=== PATIENT | male | born 1930 | race Caucasian/White ===

== ENCOUNTER 2017-03-01 12:42 | Inpatient (IN) ==
--- NOTE | 2017-03-01 15:51 | Emergency Department Note ---
Disposition Clinical Impression: Pressure ulcer Qualifiers: Pressure ulcer location: buttock Pressure ulcer stage: unspecified pressure ulcer stage Laterality: right Qualified Code(s): L89.319 - Pressure ulcer of right buttock, unspecified stage Sacral decubitus ulcer Qualifiers: Pressure ulcer stage: unspecified pressure ulcer stage Qualified Code(s): L89.159 - Pressure ulcer of sacral region, unspecified stage Disposition: Admitted As Inpatient Condition: Fair Referrals: NONE,PCP [Primary Care Provider] - Forms: ED Satisfaction Letter Time of Disposition: 18:39 Wound/Laceration HPI - General Chief Complaint: ED Wound/Laceration Stated Complaint: Ulcer on buttocks Time Seen by Provider: 03/01/17 15:16 Source: patient, family Mode of arrival: ambulatory Limitations: no limitations Nursing Notes Reviewed: Yes Vital Signs Reviewed: Yes - History of Present Illness HPI Narrative: 86-year-old male with an ulceration on his left buttocks. Patient was being seen at the [facility] wound care clinic and had surgical debridement of the wound and 2 sutures placed with packing placed. Patient is not happy with the care has had some drainage. Patient has an appointment at our wound care center on . Denies shaking chills fever. Granddaughter who is caregiver states that the wound does not look as good as it had in the past. Onset (ago): week(s) Location: other (Buttocks) Mechanism: other (Patient has a history of MS and is bedridden and developed a pressure ulcer.) Associated symptoms: Reports: none - Related Data Allergies Allergy/AdvReac Type Severity Reaction Status Date / Time Penicillins Allergy Swelling Verified 03/01/17 13:51 of Lip/Tongue/Throat All systems ED: reviewed and negative except as stated. Constitutional: Denies: fever, chills, weakness, weight change Eyes: Denies: eye pain, eye discharge, vision change ENT ED: Denies: ear pain, throat pain, dental pain, hearing loss, epistaxis, congestion, dysphagia Cardiovascular: Denies: chest pain, palpitations, dyspnea on exertion, edema, syncope Respiratory: Denies: cough, dyspnea, wheezes, hemoptysis, stridor Gastrointestinal: Denies: abdominal pain, nausea, vomiting, diarrhea, constipation, hematemesis, melena, hematochezia Genitourinary: Denies: urgency, dysuria, frequency, hematuria Musculoskeletal: Denies: back pain, neck pain, arthralgia, myalgia Integumentary: Denies: rash, abrasion, lesions Neurological: Denies: headache, weakness, numbness, paresthesias, confusion, abnormal gait, vertigo Psychiatric: Denies: anxiety, depression, suicidal thoughts, homicidal thoughts , auditory hallucinations, visual hallucinations Endocrine: Denies: fatigue Hematological/Lymphatic: Denies: easy bleeding, easy bruising Allergic/Immunologic: Denies: facial swelling, urticaria Past Medical History - Past Medical History Medical history: Reports: dementia, hypertension, TIA Psychiatric history: Reports: no psych history - Social History Smoking Status: Former smoker Smokeless Tobacco Status: No Alcohol use: Reports: none Drug use: Reports: none Physical Exam - General General appearance: alert, in no apparent distress - Head Head exam: atraumatic, normocephalic, normal inspection - Eye Eye exam: Present: normal appearance, PERRL, EOMI - ENT ENT exam: normal exam, normal oropharynx, mucous membranes moist - Neck Neck exam: Present: normal inspection, full ROM, trachea midline - Chest Chest inspection: Present: normal inspection, symmetric chest wall rise - Respiratory Respiratory exam: Present: normal lung sounds bilaterally - Cardiovascular Cardiovascular exam: Present: regular rate, normal rhythm, normal heart sounds - Abdominal Exam Abdominal exam: Present: soft, Non-Tender. Absent: tenderness, distention, guarding, rebound, rigidity - Rectal Exam Rectal exam: Present: other (Serration with 2 sutures of with some drainage. The sutures are very loose and do not approximate the wound edges. There is packing in place. A culture was obtained. The sutures were removed. New packing was placed.) - Extremities Exam Extremities exam: Present: normal inspection, full ROM. Absent: tenderness, pedal edema - Expanded Lower Extremity Exam Neurovascular/Tendon exam: Absent: motor deficit, sensory deficit, tendon deficit Gait: not tested/not observed - Back Exam Back exam: Present: normal inspection, full ROM. Absent: tenderness - Neurological Exam Neurological exam: Present: alert, oriented X3 - Psychiatric Psychiatric exam: Present: normal affect, normal mood - Skin Skin exam: Present: warm, dry, intact, normal color Course - Reevaluation(s) Reevaluation #1: 86-year-old with an ulceration on his right buttocks review had debridement done an outside facility with 2 stitches placed. Caregiver states that the amount of drainage has markedly increased and it looks much worse with surrounding redness. The 2 sutures were removed and. Material was irrigated from the ulceration. CT scan does show a sacral decubitus with cellulitis extending down to the initial tuberosity but no osteomyelitis. In light of the worsening symptoms the patient will be admitted IV antibiotics and surgical evaluation. Time: 18:37 - Consultations Consultation #1: Discussed with Rehana Ren, admit. Time: 18:37 Vital Signs Temperature 97.7 F 03/01/17 13:46 Pulse Rate 81 03/01/17 13:46 Respiratory Rate 16 03/01/17 13:46 Blood Pressure 171/78 03/01/17 13:46 O2 Sat by Pulse Oximetry 96 03/01/17 13:46 Temperature 97.7 F 03/01/17 13:46 Pulse Rate 81 03/01/17 13:46 Respiratory Rate 16 03/01/17 13:46 Blood Pressure 171/78 03/01/17 13:46 O2 Sat by Pulse Oximetry 96 03/01/17 13:46 Oxygen Delivery Oxygen Delivery Room Air Wound/Laceration - Lab Data Result diagrams: 03/01/17 16:04 03/01/17 16:04 Lab Results 03/01/17 03/01/17 03/01/17 Range/Units 16:04 16:04 16:04 WBC 9.3 (4.3-11.1) K/mcL RBC 3.61 L (4.19-5.50) M/mcL Hgb 10.8 L (12.9-16.9) g/dL Hct 33.9 L (37.5-50.1) % MCV 93.9 (83.0-100.0) fL MCH 29.9 (28.0-33.3) pg MCHC 31.9 (31.6-35.5) g/dL RDW 13.6 (11.5-14.5) % Plt Count 283 (140-400) K/mcL MPV 9.3 L (9.4-12.4) fL Immature Gran % 0.3 (0-4) % Seg Neutrophils % 69.6 % Lymphocytes % 17.1 % Monocytes % 7.8 % Eosinophils % 5.1 % Basophils % 0.1 % Neutrophils # 6.4 (1.6-8.9) K/mcL Lymphocytes # 1.6 (0.6-4.6) K/mcL Monocytes # 0.7 (0.0-1.3) K/mcL Eosinophils # 0.5 (0.0-0.6) K/mcL Basophils # 0.0 (0.0-0.2) K/mcL ESR 78 H (0-10) mm/hr Sodium 146 H (136-145) mEq/L Potassium 4.1 (3.5-4.5) mEq/L Chloride 110 H (98-109) mEq/L Carbon Dioxide 29 (19-29) mEq/L BUN 26 (8-26) mg/dL Creatinine 1.11 (0.72-1.25) mg/dL Est GFR ( Amer) > 60 (> 60) Est GFR (Non-Af Amer) > 60 (> 60) BUN/Creatinine Ratio 23 (6-26) Glucose 120 H (70-99) mg/dL Calculated Osmolality 308 H (280-300) Calcium 9.1 (8.6-10.8) mg/dL - Radiology Data Radiology results reviewed: Yes I reviewed the patient's radiology results. Pelvis CT 03/01/17 16:50 IMPRESSION: 1. Sacral decubitus ulcer extending to the right ischial tuberosity. 2. No erosion change to indicate osteomyelitis. MRI may be considered for more sensitive evaluation if necessary. 3. Trabecular pattern of bladder mucosa suggests bladder outlet obstruction that is chronic. There is also slight proximal dilation of the distal ureters. D/ / Juan Daniel Melton MD / Juan Daniel Melton MD Interpreting Provider: Juan Daniel Melton MD
[2017-03-01 16:11] LABS: Basophils % 0.1 %; Eosinophils # 0.5 K/mcL (0.0-0.6); Eosinophils % 5.1 %; Hematocrit 33.9 % (37.5-50.1); Hemoglobin 10.8 g/dL (12.9-16.9); Immature Granulocytes % 0.3 % (0-4); Lymphocytes # 1.6 K/mcL (0.6-4.6); Lymphocytes % 17.1 %; Mean Corpuscular HGB Conc 31.9 g/dL (31.6-35.5); Mean Corpuscular Hemoglobin 29.9 pg (28.0-33.3); Mean Corpuscular Volume 93.9 fL (83.0-100.0); Mean Platelet Volume 9.3 fL (9.4-12.4); Monocytes # 0.7 K/mcL (0.0-1.3); Monocytes % 7.8 %; Neutrophils # 6.4 K/mcL (1.6-8.9); Platelet Count 283 K/mcL (140-400); Red Blood Count 3.61 M/mcL (4.19-5.50); Red Cell Distribution Width 13.6 % (11.5-14.5); Segmented Neutrophils % 69.6 %
[2017-03-01 16:23] LABS: BUN/Creatinine Ratio 23 (6-26); Blood Urea Nitrogen 26 mg/dL (8-26); Calcium 9.1 mg/dL (8.6-10.8); Carbon Dioxide 29 mEq/L (19-29); Chloride 110 mEq/L (98-109); Glucose 120 mg/dL (70-99); Osmolality,Calculated 308 (280-300); Potassium 4.1 mEq/L (3.5-4.5); Sodium 146 mEq/L (136-145); eGFR For African Americans > 60 (> 60); eGFR For Non-African Americans > 60 (> 60)
[2017-03-01] MEDS ORDERED: Vancomycin 1,000 MG in D5% in Water 250 ML IVPB ONE (18:36)
[2017-03-01] MEDS ORDERED: Ibuprofen 400 MG TABLET PO PRN (20:28)
[2017-03-01] MEDS ORDERED: *HR* Morphine 2 MG/ML SYRINGE IVP PRN (20:28)
[2017-03-01] MEDS ORDERED: Naloxone 0.4 MG/ML INJ IVP PRN (20:28)
[2017-03-01] MEDS ORDERED: Baclofen 10 MG TABLET PO PRN (20:28)
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
[2017-03-01] MEDS: Gabapentin 100 MG CAPSULE PO SCH (21:53)
[2017-03-01] MEDS: Ringers Solution, Lactated 1,000 ML IVC SCH (21:53)
[2017-03-02 04:41] LABS: Eosinophils # 0.6 K/mcL (0.0-0.6); Eosinophils % 7.1 %; Hematocrit 29.1 % (37.5-50.1); Hemoglobin 9.6 g/dL (12.9-16.9); Immature Granulocytes % 0.2 % (0-4); Lymphocytes # 1.3 K/mcL (0.6-4.6); Lymphocytes % 14.9 %; Mean Corpuscular Hemoglobin 30.7 pg (28.0-33.3); Mean Platelet Volume 9.9 fL (9.4-12.4); Monocytes # 0.9 K/mcL (0.0-1.3); Monocytes % 10.2 %; Neutrophils # 5.8 K/mcL (1.6-8.9); Platelet Count 229 K/mcL (140-400); Red Blood Count 3.13 M/mcL (4.19-5.50); Red Cell Distribution Width 13.8 % (11.5-14.5); Segmented Neutrophils % 67.6 %
[2017-03-02 04:50] LABS: BUN/Creatinine Ratio 25 (6-26); Blood Urea Nitrogen 28 mg/dL (8-26); Calcium 8.4 mg/dL (8.6-10.8); Carbon Dioxide 27 mEq/L (19-29); Chloride 111 mEq/L (98-109); Glucose 86 mg/dL (70-99); Osmolality,Calculated 303 (280-300); Potassium 4.1 mEq/L (3.5-4.5); Sodium 144 mEq/L (136-145); eGFR For African Americans > 60 (> 60); eGFR For Non-African Americans > 60 (> 60)
[2017-03-02] MEDS: *HR* Heparin 5,000 UNIT/ML VIAL SQ SCH ×2 (06:38→17:03)
[2017-03-02] MEDS: Ringers Solution, Lactated 1,000 ML IVC SCH (09:21)
[2017-03-02] MEDS: Gabapentin 100 MG CAPSULE PO SCH ×3 (09:21→20:46)
[2017-03-02] MEDS: Cholecalciferol (D-3) 1,000 UNIT TABLET PO SCH (09:21)
--- NOTE | 2017-03-02 11:20 | General Surgery Consult Note ---
<Cate Khoury - Last Filed: 03/02/17 11:36> Date of Encounter: 03/02/17 Time of Encounter: 10:30 Assessment and Plan (1) Pressure ulcer Current Visit: Yes Status: Acute Daily wound care: wash daily with soap and water. Apply sample and gentamicin ( 50/50) nickel thick to the wound bed. Cover with a moistened KerLix calls. Cover with ABD and tape to secure daily and PRN when soiled and after bowel movements. Q2 turns. Granddaughter is unable to provide 24-hour care including Q2 turns and with like referral for rehab versus ECF placement. PT OT eval and treat for limited ADLs and pressure ulcer Prevention as well as rehab placement. FLORENTINO Gu aware. If he is discharged prior to Wednesday, he will need a follow-up in the wound clinic and will need a Roho at d/c. Qualifiers: Pressure ulcer location: buttock Pressure ulcer stage: stage 4 Laterality : right Qualified Code(s): L89.314 - Pressure ulcer of right buttock, stage 4 (2) Paraplegia Current Visit: Yes Status: Chronic See plan above History of Present Illness Consult date: 03/02/17 (Jermain Fontaine) Reason for consult: wound care Requesting physician: Aj Fuller History of present illness: Deniz is an 86 year old male with a past medical history of paraplegia (wheelchair-bound), multiple sclerosis, and pressure ulcers. He presented for complaints of a perianal nonhealing pressure ulcer. He lives at home with his granddaughter who provides the majority of his care. He denies fever or chills. He denies headaches, dizziness, chest pain, shortness of breath, nausea , vomiting, diarrhea, constipation, or changes in bowel habits. Surgery was consultative for evaluation and management of perianal decubitus ulcer. Past Med Surg Social Fam HX - Past Medical History Medical history: dementia, hypertension, TIA Psychiatric history: depression - Past Surgical History Surgical History: cancer surgery - Social History Smoking Status: Former smoker Smokeless Tobacco Status: No Alcohol use: none Drug use: none Occupational status: disabled Current living situation: With Family Activity Level: Wheelchair bound Recent Out of Country Travel Within the Last 8 Weeks: No Exposure or Possible Exposure to Illness During Travel: No Medications and Allergies Atorvastatin [Lipitor] 10 mg PO HS 03/01/17 [History] Baclofen [Lioresal] 10 mg PO BID PRN 03/01/17 [History] Cholecalciferol (Vitamin D3) [Vitamin D] 2,000 unit PO DAILY 03/01/17 [History] Clopidogrel [Plavix] 75 mg PO DAILY 03/01/17 [History] Cyanocobalamin (Vitamin B-12) [Vitamin B-12] 500 mcg PO DAILY 03/01/17 [History] Gabapentin [Neurontin] 200 mg PO TID 03/01/17 [History] Ibuprofen [Motrin] 400 mg PO Q6H PRN 03/01/17 [History] 3 Allergy/AdvReac Type Severity Reaction Status Date / Time Penicillins Allergy Swelling Verified 03/01/17 13:51 of Lip/Tongue/Throat Review of Systems All systems PM: A 10-system review of systems was performed and is negative for pertinent findings except as documented above in the HPI. General Surgery Exam Initial Vital Signs Temp Pulse Resp BP Pulse Ox 97.7 F 81 16 171/78 96 03/01/17 13:46 03/01/17 13:46 03/01/17 13:46 03/01/17 13:46 03/01/17 13:46 - General physical appearance no distress, chronically ill - Eyes PERRL, normal ocular movement - ENT normal pinna, normal nares, normal mucosa, no hearing loss, no congestion - Neck no masses, no bruits, trachea midline, no lymphadectomy, no venous distension - Respiratory normal expansion, normal respiratory effort, clear to percussion, clear to auscultation - Cardiovascular Cardiovascular exam: Present: RRR, 15, 16 - Abdomen Abdomen general surgery: Present: bowel sounds present, soft, non tender - Rectum Rectum: Present: no bleeding - Integumentary Integumentary general surgery: Present: warm and dry, other (Perianal decub on the right. No drainage or signs of infection noted.) - Neurologic Present: normal sensation - Musculoskeletal Present: other (Multiple contractures noted) - Psychiatric Psychiatric general surgery: Present: appropriate, oriented to person, oriented to place, oriented to time, speech is normal, memory intact Exam Initial Vital Signs Temp Pulse Resp BP Pulse Ox 97.7 F 81 16 171/78 96 03/01/17 13:46 03/01/17 13:46 03/01/17 13:46 03/01/17 13:46 03/01/17 13:46 Results - Labs 03/02/17 04:28 03/02/17 04:28 Abnormal lab results RBC 3.13 M/mcL (4.19-5.50) L 03/02/17 04:28 Hgb 9.6 g/dL (12.9-16.9) L 03/02/17 04:28 Hct 29.1 % (37.5-50.1) L 03/02/17 04:28 ESR 78 mm/hr (0-10) H 03/01/17 16:04 Chloride 111 mEq/L (98-109) H 03/02/17 04:28 BUN 28 mg/dL (8-26) H 03/02/17 04:28 Calculated Osmolality 303 (280-300) H 03/02/17 04:28 Calcium 8.4 mg/dL (8.6-10.8) L 03/02/17 04:28 Diabetes panel 03/02/17 Range/Units 04:28 Sodium 144 (136-145) mEq/L Potassium 4.1 (3.5-4.5) mEq/L Chloride 111 H (98-109) mEq/L Carbon Dioxide 27 (19-29) mEq/L BUN 28 H (8-26) mg/dL Creatinine 1.13 (0.72-1.25) mg/dL Glucose 86 (70-99) mg/dL Calcium 8.4 L (8.6-10.8) mg/dL Calcium panel 03/02/17 Range/Units 04:28 Calcium 8.4 L (8.6-10.8) mg/dL Pituitary panel 03/02/17 Range/Units 04:28 Sodium 144 (136-145) mEq/L Potassium 4.1 (3.5-4.5) mEq/L Chloride 111 H (98-109) mEq/L Carbon Dioxide 27 (19-29) mEq/L BUN 28 H (8-26) mg/dL Creatinine 1.13 (0.72-1.25) mg/dL Glucose 86 (70-99) mg/dL Calcium 8.4 L (8.6-10.8) mg/dL Adrenal panel 03/02/17 Range/Units 04:28 Sodium 144 (136-145) mEq/L Potassium 4.1 (3.5-4.5) mEq/L Chloride 111 H (98-109) mEq/L Carbon Dioxide 27 (19-29) mEq/L BUN 28 H (8-26) mg/dL Creatinine 1.13 (0.72-1.25) mg/dL Glucose 86 (70-99) mg/dL Calcium 8.4 L (8.6-10.8) mg/dL All other labs normal. - Imaging Additional studies: Pelvis CT 03/01/17 16:50 IMPRESSION: 1. Sacral decubitus ulcer extending to the right ischial tuberosity. 2. No erosion change to indicate osteomyelitis. MRI may be considered for more sensitive evaluation if necessary. 3. Trabecular pattern of bladder mucosa suggests bladder outlet obstruction that is chronic. There is also slight proximal dilation of the distal ureters. D/ / Juan Daniel Melton MD / Juan Daniel Melton MD Interpreting Provider: Juan Daniel Melton MD Consult Discharge Plan - Plan Additional Instructions: wash buttock wound with soap and water daily and prn soilage, get 1 4x4 gauze moist with saline (not sloppy wet) and apply santyl and gentamicin ointment to gauze and mix/rub into gauze, pack into wound, cover with dry 4x4 gauze and secure with medipore tape, change daily and prn soilage Referrals: NONE,PCP [Primary Care Provider] - Lynne Fontaine MD [Partnered Physician] - (follow up with me in wound care this wednesday) <Lynne Fontaine - Last Filed: 03/02/17 12:18> Date of Encounter: 03/02/17 Assessment and Plan (1) Pressure ulcer of ischium, stage 3 Current Visit: Yes Status: Acute are does not appear infected wash buttock wound with soap and water daily and prn soilage, get 1 4x4 gauze moist with saline (not sloppy wet) and apply santyl and gentamicin ointment to gauze and mix/rub into gauze, pack into wound, cover with dry 4x4 gauze and secure with medipore tape, change daily and prn soilage patient does not need to be kept in hospital due to this wound, ok to dc from wound care standpoint once his grandaughter is taught how to dress wound follow up with me in wound care this wednesday turn and reposition every 2 hours while in bed Low air loss mattress at all times while in bed Qualifiers: Laterality: right Qualified Code(s): L89.313 - Pressure ulcer of right buttock, stage 3 History of Present Illness History of present illness: Patient and his daughter state he has had a pressure ulcer for the last three weeks. He was seeing a surgeon at [facility] who recently took him to the OR and surgically closed the wound. The wound opened after a few days. He is unsure what dressings are currently being done to it, he is unsure about drainage. He lives with his granddaughter who takes care of him Past Med Surg Social Fam HX - Past Medical History Source: patient Medical history: other (MS, contractures RUE) Review of Systems All systems PM: reviewed and no additional remarkable complaints except as stated All systems PM: A 10-system review of systems was performed and is negative for pertinent findings except as documented above in the HPI. General Surgery Exam Initial Vital Signs Temp Pulse Resp BP Pulse Ox 97.7 F 81 16 171/78 96 03/01/17 13:46 03/01/17 13:46 03/01/17 13:46 03/01/17 13:46 03/01/17 13:46 - General physical appearance no distress, chronically ill - Eyes PERRL, normal ocular movement - ENT normal mucosa - Neck no masses - Respiratory normal expansion - Integumentary Integumentary general surgery: Present: other (right ischium pressure ulcer stage 3, 80% granulation, 20% slough, periwound warm and no erythema, moderate serous drainge) - Neurologic Present: CN 2-12 grossly intact - Musculoskeletal Present: other (Multiple contractures noted, wheelchair bound) - Psychiatric Psychiatric general surgery: Present: A&Ox3, memory intact Exam Initial Vital Signs Temp Pulse Resp BP Pulse Ox 97.7 F 81 16 171/78 96 03/01/17 13:46 03/01/17 13:46 03/01/17 13:46 03/01/17 13:46 03/01/17 13:46 Results - Labs 03/02/17 04:28 03/02/17 04:28 Abnormal lab results RBC 3.13 M/mcL (4.19-5.50) L 03/02/17 04:28 Hgb 9.6 g/dL (12.9-16.9) L 03/02/17 04:28 Hct 29.1 % (37.5-50.1) L 03/02/17 04:28 ESR 78 mm/hr (0-10) H 03/01/17 16:04 Chloride 111 mEq/L (98-109) H 03/02/17 04:28 BUN 28 mg/dL (8-26) H 03/02/17 04:28 Calculated Osmolality 303 (280-300) H 03/02/17 04:28 Calcium 8.4 mg/dL (8.6-10.8) L 03/02/17 04:28 Diabetes panel 03/02/17 Range/Units 04:28 Sodium 144 (136-145) mEq/L Potassium 4.1 (3.5-4.5) mEq/L Chloride 111 H (98-109) mEq/L Carbon Dioxide 27 (19-29) mEq/L BUN 28 H (8-26) mg/dL Creatinine 1.13 (0.72-1.25) mg/dL Glucose 86 (70-99) mg/dL Calcium 8.4 L (8.6-10.8) mg/dL Calcium panel 03/02/17 Range/Units 04:28 Calcium 8.4 L (8.6-10.8) mg/dL Pituitary panel 03/02/17 Range/Units 04:28 Sodium 144 (136-145) mEq/L Potassium 4.1 (3.5-4.5) mEq/L Chloride 111 H (98-109) mEq/L Carbon Dioxide 27 (19-29) mEq/L BUN 28 H (8-26) mg/dL Creatinine 1.13 (0.72-1.25) mg/dL Glucose 86 (70-99) mg/dL Calcium 8.4 L (8.6-10.8) mg/dL Adrenal panel 03/02/17 Range/Units 04:28 Sodium 144 (136-145) mEq/L Potassium 4.1 (3.5-4.5) mEq/L Chloride 111 H (98-109) mEq/L Carbon Dioxide 27 (19-29) mEq/L BUN 28 H (8-26) mg/dL Creatinine 1.13 (0.72-1.25) mg/dL Glucose 86 (70-99) mg/dL Calcium 8.4 L (8.6-10.8) mg/dL All other labs normal. - Imaging CT scan - pelvis: report reviewed - Attending Attestation I have personally performed a face to face evaluation on this patient. I have reviewed and agree with the care plan. History and Exam by me shows:
[2017-03-02] MEDS: Gentamicin Oint 15 GM TUBE TP SCH (11:31)
--- NOTE | 2017-03-02 12:25 | Internal Med Progress Note ---
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 Resting in bed and denies any discomfort at this time. He is bed and wheelchair bound at baseline and only oriented to self at baseline. - Constitutional Vitals: Temp Pulse Resp BP Pulse Ox 97.9 F 96 15 118/56 95 03/02/17 10:42 03/02/17 10:42 03/02/17 10:42 03/02/17 10:42 03/02/17 10:42 General appearance: Present: A&O X 1, no acute distress, underweight - Head Head exam: Present: atraumatic, normocephalic - Eye Eye exam: Present: conjuntiva pink, sclera anicteric - Respiratory Respiratory exam: Present: CTAB. Absent: accessory muscle use, rales, rhonchi, wheezes - Cardiovascular Cardiovascular exam: Present: RRR, +S1, +S2. Absent: diastolic murmur, gallop, rubs, systolic murmur - GI/Abdominal GI/Abdominal exam: Present: normal bowel sounds, soft, no peritoneal signs. Absent: distended, tenderness - Extremities Exam Extremities exam: Present: warm, radial pulses palpable and symmetrical. Absent : calf tenderness (onychomycosis of bilateral toe nails) - Neurological Exam Neurological exam: Present: alert - Psychiatric Psychiatric exam: Present: normal affect, normal mood Internal Medicine: Result - Labs CBC & Chem 7: 03/02/17 04:28 03/02/17 04:28 Labs: Short CBC 03/02/17 Range/Units 04:28 WBC 8.5 (4.3-11.1) K/mcL Hgb 9.6 L (12.9-16.9) g/dL Hct 29.1 L (37.5-50.1) % Plt Count 229 (140-400) K/mcL Neutrophils # 5.8 (1.6-8.9) K/mcL BMP 03/02/17 04:28 Sodium 144 Potassium 4.1 Chloride 111 H Carbon Dioxide 27 BUN 28 H Creatinine 1.13 Glucose 86 Calcium 8.4 L Consult Discharge Plan - Plan Additional Instructions: wash buttock wound with soap and water daily and prn soilage, get 1 4x4 gauze moist with saline (not sloppy wet) and apply santyl and gentamicin ointment to gauze and mix/rub into gauze, pack into wound, cover with dry 4x4 gauze and secure with medipore tape, change daily and prn soilage Referrals: Lynne Fontaine MD [Partnered Physician] - (follow up with me in wound care this wednesday) NONE,PCP [Primary Care Provider] -
[2017-03-02] MEDS: Multivit/Ca/Min/Fe/FA 1 TAB TABLET PO SCH (17:03)
[2017-03-02] MEDS: Vancomycin 1,000 MG in D5% in Water 250 ML IVPB SCH (18:25)
[2017-03-02] MEDS ORDERED: Vancomycin 1,000 MG in D5% in Water 250 ML IVPB SCH (20:00)
[2017-03-02] MEDS: Ibuprofen 400 MG TABLET PO PRN (20:46)
[2017-03-02] MEDS: Ascorbic Acid 500 MG TABLET PO SCH (20:46)
[2017-03-03] MEDS: Ringers Solution, Lactated 1,000 ML IVC SCH ×2 (01:40→13:19)
[2017-03-03] MEDS: Ibuprofen 400 MG TABLET PO PRN (03:34)
[2017-03-03 03:50] LABS: Eosinophils # 0.5 K/mcL (0.0-0.6); Eosinophils % 6.5 %; Hematocrit 24.9 % (37.5-50.1); Hemoglobin 8.1 g/dL (12.9-16.9); Immature Granulocytes % 0.2 % (0-4); Lymphocytes # 1.4 K/mcL (0.6-4.6); Mean Corpuscular HGB Conc 32.5 g/dL (31.6-35.5); Mean Corpuscular Hemoglobin 30.3 pg (28.0-33.3); Mean Corpuscular Volume 93.3 fL (83.0-100.0); Mean Platelet Volume 9.5 fL (9.4-12.4); Monocytes # 0.9 K/mcL (0.0-1.3); Monocytes % 11.4 %; Neutrophils # 5.2 K/mcL (1.6-8.9); Platelet Count 209 K/mcL (140-400); Red Blood Count 2.67 M/mcL (4.19-5.50); Red Cell Distribution Width 13.7 % (11.5-14.5); Segmented Neutrophils % 64.9 %
[2017-03-03 04:03] LABS: Magnesium 1.4 mg/dL (1.6-2.6); Phosphorous 3.1 mg/dL (2.3-4.7)
[2017-03-03 04:04] LABS: BUN/Creatinine Ratio 32 (6-26); Blood Urea Nitrogen 36 mg/dL (8-26); Carbon Dioxide 28 mEq/L (19-29); Chloride 112 mEq/L (98-109); Glucose 89 mg/dL (70-99); Osmolality,Calculated 302 (280-300); Potassium 4.2 mEq/L (3.5-4.5); Sodium 142 mEq/L (136-145); eGFR For African Americans > 60 (> 60); eGFR For Non-African Americans > 60 (> 60)
[2017-03-03] MEDS: *HR* Heparin 5,000 UNIT/ML VIAL SQ SCH ×2 (06:27→17:38)
[2017-03-03] MEDS ORDERED: Magnesium Sulfate 2 GM in D5% in Water 100 ML IVPB ONE (07:31)
[2017-03-03] MEDS: Cholecalciferol (D-3) 1,000 UNIT TABLET PO SCH (07:59)
[2017-03-03] MEDS: Ascorbic Acid 500 MG TABLET PO SCH ×2 (07:59→20:27)
[2017-03-03] MEDS: Multivit/Ca/Min/Fe/FA 1 TAB TABLET PO SCH (07:59)
[2017-03-03] MEDS: Gabapentin 100 MG CAPSULE PO SCH ×3 (07:59→20:27)
[2017-03-03] MEDS: Gentamicin Oint 15 GM TUBE TP SCH (08:01)
[2017-03-03] MEDS ORDERED: Levofloxacin 750 MG/150 ML 750 MG/150 ML BAG IVPB SCH (09:00)
--- NOTE | 2017-03-03 13:08 | Internal Med Progress Note ---
Date of Encounter: 03/03/17 Time of Encounter: 13:04 - Assessment and plan (1) Sacral decubitus ulcer Current Visit: Yes Status: Acute Assessment and plan: Wound cultures positive for E.coli ESBL, proteus mirabilis, and enteroccocus species, only sensitive to Carbapenems. Will start Meropenem and continue Vancomycin monitor vanco trough will follow up official wound culture results daily wound care as per surgery Family states they would like to take the patient when ready after discharge however if he needs IV abx, then they would prefer if he went to an ECF. 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, stage 4 (2) Paraplegia Current Visit: Yes Status: Chronic (3) CVA (cerebral vascular accident) Current Visit: Yes Status: Chronic Assessment and plan: history of CVA with right sided residual deficit continue lipitor and plavix Qualifiers: CVA mechanism: unspecified Qualified Code(s): I63.9 - Cerebral infarction, unspecified (4) DVT prophylaxis Current Visit: Yes Status: Acute Assessment and plan: heparin SQ (5) Electrolyte abnormality Current Visit: Yes Status: Acute Assessment and plan: Hypomagnesemia Mg supplemented continue to monitor electrolytes and replace as needed - Subjective Interval history: Patient seen and examined with daughter present at bedside. Pt eating lunch and reports of feeling better compared to previous day. he is noted to have a preliminary positive wound culture for E.coli ESBL, Enterococcus, Proteus mirabilis which is resistant to majority of the drugs and sensitive to carbapenems. The pharmacist discussed patient's penicillin in detail with patient's POA/clinical care coordinator (grand daughter), who stated that he had a reaction with swollen lips to penicillin 60 years ago and no such recurrency have been reported. Pt will be started on Meropenem with close monitoring. - Constitutional Vitals: Temp Pulse Resp BP Pulse Ox 97.5 F L 90 16 111/63 94 03/03/17 10:47 03/03/17 10:47 03/03/17 10:47 03/03/17 10:47 03/03/17 10:47 General appearance: Present: A&O X 1, no acute distress, underweight - Head Head exam: Present: atraumatic, normocephalic - Eye Eye exam: Present: conjuntiva pink, sclera anicteric - Respiratory Respiratory exam: Absent: respiratory distress, wheezes - Cardiovascular Cardiovascular exam: Present: RRR, +S1, +S2. Absent: diastolic murmur, gallop, rubs, systolic murmur - GI/Abdominal GI/Abdominal exam: Present: normal bowel sounds, soft, no peritoneal signs. Absent: distended, tenderness - Extremities Exam Extremities exam: Present: warm, radial pulses palpable and symmetrical. Absent : calf tenderness - Neurological Exam Neurological exam: Present: alert Internal Medicine: Result - Labs CBC & Chem 7: 03/03/17 03:42 03/03/17 03:42 Labs: Short CBC 03/03/17 Range/Units 03:42 WBC 8.1 (4.3-11.1) K/mcL Hgb 8.1 L D (12.9-16.9) g/dL Hct 24.9 L (37.5-50.1) % Plt Count 209 (140-400) K/mcL Neutrophils # 5.2 (1.6-8.9) K/mcL BMP 03/03/17 03:42 Sodium 142 Potassium 4.2 Chloride 112 H Carbon Dioxide 28 BUN 36 H Creatinine 1.11 Glucose 89 Calcium 8.0 L Consult Discharge Plan - Plan Additional Instructions: wash buttock wound with soap and water daily and prn soilage, get 1 4x4 gauze moist with saline (not sloppy wet) and apply santyl and gentamicin ointment to gauze and mix/rub into gauze, pack into wound, cover with dry 4x4 gauze and secure with medipore tape, change daily and prn soilage Referrals: Lynne Fontaine MD [Partnered Physician] - (follow up with me in wound care this wednesday) NONE,PCP [Primary Care Provider] -
[2017-03-03] MEDS: Meropenem 1,000 MG in 0.9 % Sodium Chloride Mini Bag 100 ML IVPB SCH ×2 (14:06→23:39)
[2017-03-03] MEDS: Vancomycin 1,000 MG in D5% in Water 250 ML IVPB SCH ×2 (17:38→20:27)
[2017-03-03 18:49] LABS: Bilirubin,Urine Negative (Negative); Blood,Urine Moderate (Negative); Clarity,Urine Cloudy (Clear); Color,Urine Yellow (Yellow); Glucose,Urine (UA) Normal (Normal); Ketones,Urine Negative (Negative); Leukocyte Esterase,Urine Large (Negative); Nitrite,Urine Negative (Negative); PH,Urine 6.5 pH Units (5.0-8.0); Protein,Urine Negative (Neg-Trace); Specific Gravity,Urine 1.021 (1.010-1.025); Urobilinogen,Urine Normal (Normal)
[2017-03-03 18:51] LABS: Bacteria,Urine None Seen per hpf (None-Few); Hyaline Casts,Urine None Seen per lpf (None-Few); RBC,Urine 15-30 per hpf (0-3); Squamous Epithelial Cell,Urine Many per lpf (None-Few); WBC,Urine 50-100 per hpf (0-3)
[2017-03-03] MEDS: Acetaminophen 325 MG TABLET PO PRN (20:26)
[2017-03-03 20:34] LABS: Basophils % 0.1 %; Eosinophils # 0.1 K/mcL (0.0-0.6); Eosinophils % 0.6 %; Hematocrit 30.1 % (37.5-50.1); Hemoglobin 9.6 g/dL (12.9-16.9); Immature Granulocytes % 0.7 % (0-4); Lymphocytes # 0.3 K/mcL (0.6-4.6); Lymphocytes % 2.3 %; Mean Corpuscular HGB Conc 31.9 g/dL (31.6-35.5); Mean Corpuscular Hemoglobin 29.5 pg (28.0-33.3); Mean Corpuscular Volume 92.6 fL (83.0-100.0); Monocytes # 0.9 K/mcL (0.0-1.3); Monocytes % 6.1 %; Neutrophils # 12.7 K/mcL (1.6-8.9); Platelet Count 225 K/mcL (140-400); Red Blood Count 3.25 M/mcL (4.19-5.50); Red Cell Distribution Width 13.7 % (11.5-14.5); Segmented Neutrophils % 90.2 %
[2017-03-03 20:52] LABS: Platelet Estimate Normal (Normal)
[2017-03-03] MEDS ORDERED: 0.9 % Sodium Chloride 500 ML ONE (21:35)
[2017-03-03] MEDS ORDERED: 0.9 % Sodium Chloride 1,000 ML IVC SCH (23:45)
[2017-03-04] MEDS: Ipratropium/Albuterol Neb 3 ML IH SCH ×7 (00:51→23:44)
[2017-03-04] MEDS ORDERED: Furosemide 20 MG/2 ML VIAL IVP ONE (03:40)
[2017-03-04] MEDS: *HR* Heparin 5,000 UNIT/ML VIAL SQ SCH ×2 (05:59→18:13)
[2017-03-04 06:07] LABS: Basophils % 0.1 %; Eosinophils # 0.1 K/mcL (0.0-0.6); Eosinophils % 1.2 %; Hematocrit 29.5 % (37.5-50.1); Hemoglobin 9.4 g/dL (12.9-16.9); Immature Granulocytes % 0.5 % (0-4); Lymphocytes # 0.9 K/mcL (0.6-4.6); Mean Corpuscular HGB Conc 31.9 g/dL (31.6-35.5); Mean Corpuscular Hemoglobin 29.9 pg (28.0-33.3); Mean Corpuscular Volume 93.9 fL (83.0-100.0); Mean Platelet Volume 9.9 fL (9.4-12.4); Monocytes # 0.9 K/mcL (0.0-1.3); Monocytes % 8.3 %; Neutrophils # 9.1 K/mcL (1.6-8.9); Platelet Count 220 K/mcL (140-400); Red Blood Count 3.14 M/mcL (4.19-5.50); Red Cell Distribution Width 14.2 % (11.5-14.5); Segmented Neutrophils % 81.9 %
[2017-03-04 06:47] LABS: Platelet Estimate Normal (Normal)
[2017-03-04 07:15] LABS: BUN/Creatinine Ratio 23 (6-26); Blood Urea Nitrogen 29 mg/dL (8-26); Calcium 8.4 mg/dL (8.6-10.8); Carbon Dioxide 23 mEq/L (19-29); Chloride 107 mEq/L (98-109); Glucose 109 mg/dL (70-99); Osmolality,Calculated 294 (280-300); Potassium 3.9 mEq/L (3.5-4.5); Sodium 139 mEq/L (136-145); eGFR For African Americans > 60 (> 60); eGFR For Non-African Americans 55 (> 60)
[2017-03-04 07:18] LABS: Magnesium 1.7 mg/dL (1.6-2.6)
[2017-03-04] MEDS: Cholecalciferol (D-3) 1,000 UNIT TABLET PO SCH (09:55)
[2017-03-04] MEDS: Gabapentin 100 MG CAPSULE PO SCH ×3 (09:55→20:02)
[2017-03-04] MEDS: Ascorbic Acid 500 MG TABLET PO SCH ×2 (09:55→20:02)
[2017-03-04] MEDS: Multivit/Ca/Min/Fe/FA 1 TAB TABLET PO SCH (09:55)
[2017-03-04] MEDS: Gentamicin Oint 15 GM TUBE TP SCH (09:56)
[2017-03-04] MEDS: Meropenem 1,000 MG in 0.9 % Sodium Chloride Mini Bag 100 ML IVPB SCH (12:20)
--- NOTE | 2017-03-04 12:29 | Internal Med Progress Note ---
Date of Encounter: 03/04/17 Time of Encounter: 12:15 - Assessment and plan (1) Aspiration pneumonia Current Visit: Yes Status: Acute Assessment and plan: CXR findings consistent with Aspiration PNA will continue IV abx (Vanco and Merrem) f/u blood cultures will maintain aspiration precautions patient to sit up right in chair for meals O2 supplementation as needed will closely monitor respiratory status Will do mechanically altered diet Qualifiers: Aspiration pneumonia type: unspecified Laterality: bilateral Lung location: lower lobe of lung Qualified Code(s): J69.0 - Pneumonitis due to inhalation of food and vomit (2) Sacral decubitus ulcer Current Visit: Yes Status: Acute Assessment and plan: Wound cultures positive for E.coli ESBL, proteus mirabilis, and enteroccocus species, only sensitive to Carbapenems. Continue Meropenem and Vancomycin monitor vanco trough daily wound care Family states they would like to take the patient when ready after discharge however if he needs IV abx, then they would prefer if he went to an ECF. 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 Patient was noted to be hypotensive overnight and febrile. He was transferred to for concern for respiratory distress and hypotension. STAT lab work and imaging were concerning for Aspiration pneumonia. At this time, patient is resting in bed and reports of feeling better compared to previous day. He is saturating well on nasal cannula. He was evaluated by speech therapy and regular diet was recommended. Given patient's frail state, will start mechanically altered diet. He is at his baseline mental status. I had a detailed discussion with the POA in regards to patient's advance directives. She states that patient does not want to be on life support nursing home however does initially want all the interventions necessary if he were to go into acute respiratory failure or cardiac arrest. He is to remain full code at this time. Patient was started on Meropenem yesterday and he is tolerating therapy well, no adverse reactions reported given penicillin allergy. - Constitutional Vitals: Temp Pulse Resp BP Pulse Ox 99.3 F 105 20 110/50 96 03/04/17 11:45 03/04/17 11:45 03/04/17 11:54 03/04/17 11:45 03/04/17 11:54 General appearance: Present: A&O X 1, no acute distress, underweight - Head Head exam: Present: atraumatic, normocephalic - Eye Eye exam: Present: conjuntiva pink, sclera anicteric - Respiratory Respiratory exam: Absent: respiratory distress, wheezes (coarse breath sounds bilaterally) - Cardiovascular Cardiovascular exam: Present: +S1, +S2, tachycardia - GI/Abdominal GI/Abdominal exam: Present: normal bowel sounds, soft, no peritoneal signs. Absent: distended, tenderness - Extremities Exam Extremities exam: Present: pedal edema, warm, radial pulses palpable and symmetrical. Absent: calf tenderness - Back Exam Additional comments: stage III sacral decubitus - Neurological Exam Neurological exam: Present: alert - Psychiatric Psychiatric exam: Present: normal affect, normal mood Internal Medicine: Result - Labs CBC & Chem 7: 03/04/17 05:41 03/04/17 05:41 Labs: Short CBC 03/03/17 03/04/17 Range/Units 20:21 05:41 WBC 14.1 H D 11.1 (4.3-11.1) K/mcL Hgb 9.6 L D 9.4 L (12.9-16.9) g/dL Hct 30.1 L 29.5 L (37.5-50.1) % Plt Count 225 220 (140-400) K/mcL Neutrophils # 12.7 H 9.1 H (1.6-8.9) K/mcL BMP 03/04/17 05:41 Sodium 139 Potassium 3.9 Chloride 107 Carbon Dioxide 23 BUN 29 H Creatinine 1.24 Glucose 109 H Calcium 8.4 L Urine 03/03/17 Range/Units 18:19 Urine Color Yellow (Yellow) Urine Clarity Cloudy A (Clear) Urine pH 6.5 (5.0-8.0) pH Units Ur Specific Debary 1.021 (1.010-1.025) Urine Protein Negative (Neg-Trace) mg/dL Urine Glucose (UA) Normal (Normal) mg/dL - Impressions Impressions Chest X-Ray 03/03/17 20:36 IMPRESSION: Bibasilar lung opacities which could represent atelectasis or aspiration. D/ / Abiel Perez MD / Abiel Perez MD Interpreting Provider: Abiel Perez MD Consult Discharge Plan - Plan Additional Instructions: wash buttock wound with soap and water daily and prn soilage, get 1 4x4 gauze moist with saline (not sloppy wet) and apply santyl and gentamicin ointment to gauze and mix/rub into gauze, pack into wound, cover with dry 4x4 gauze and secure with medipore tape, change daily and prn soilage Referrals: Lynne Fontaine MD [Partnered Physician] - (follow up with me in wound care this wednesday) Deniz Ramos MD [Non-Partnered Physician] -
[2017-03-04] MEDS: Vancomycin 1,000 MG in D5% in Water 250 ML IVPB SCH (18:12)
[2017-03-05] MEDS: Acetaminophen 325 MG TABLET PO PRN (00:23)
[2017-03-05] MEDS: Meropenem 1,000 MG in 0.9 % Sodium Chloride Mini Bag 100 ML IVPB SCH ×2 (00:23→12:39)
[2017-03-05] MEDS: *HR* Heparin 5,000 UNIT/ML VIAL SQ SCH ×2 (06:22→16:48)
[2017-03-05] MEDS: Ipratropium/Albuterol Neb 3 ML IH SCH ×6 (06:25→23:13)
[2017-03-05 07:06] LABS: BUN/Creatinine Ratio 23 (6-26); Blood Urea Nitrogen 23 mg/dL (8-26); Calcium 8.2 mg/dL (8.6-10.8); Carbon Dioxide 23 mEq/L (19-29); Chloride 108 mEq/L (98-109); Glucose 122 mg/dL (70-99); Magnesium 1.5 mg/dL (1.6-2.6); Osmolality,Calculated 291 (280-300); Potassium 3.9 mEq/L (3.5-4.5); Sodium 138 mEq/L (136-145); eGFR For African Americans > 60 (> 60); eGFR For Non-African Americans > 60 (> 60)
[2017-03-05] MEDS ORDERED: Magnesium Sulfate 2 GM in D5% in Water 100 ML IVPB ONE (07:34)
[2017-03-05 07:55] LABS: Platelet Estimate Normal (Normal)
[2017-03-05 08:13] LABS: Eosinophils # 0.3 K/mcL (0.0-0.6); Hematocrit 23.6 % (37.5-50.1); Hemoglobin 7.6 g/dL (12.9-16.9); Lymphocytes # 2.3 K/mcL (0.6-4.6); Mean Corpuscular HGB Conc 32.2 g/dL (31.6-35.5); Mean Corpuscular Hemoglobin 30.2 pg (28.0-33.3); Mean Corpuscular Volume 93.7 fL (83.0-100.0); Mean Platelet Volume 10.1 fL (9.4-12.4); Monocytes # 0.1 K/mcL (0.0-1.3); Neutrophils # 4.5 K/mcL (1.6-8.9); Platelet Count 155 K/mcL (140-400); Red Blood Count 2.52 M/mcL (4.19-5.50); Red Cell Distribution Width 14.4 % (11.5-14.5)
[2017-03-05] MEDS: Gabapentin 100 MG CAPSULE PO SCH ×3 (08:52→22:13)
[2017-03-05] MEDS: Ascorbic Acid 500 MG TABLET PO SCH ×2 (08:52→22:13)
[2017-03-05] MEDS: Multivit/Ca/Min/Fe/FA 1 TAB TABLET PO SCH (08:53)
[2017-03-05] MEDS: Cholecalciferol (D-3) 1,000 UNIT TABLET PO SCH (08:53)
[2017-03-05] MEDS: Gentamicin Oint 15 GM TUBE TP SCH (09:32)
--- NOTE | 2017-03-05 09:44 | Internal Med Progress Note ---
Date of Encounter: 03/05/17 Time of Encounter: 09:44 - Assessment and plan (1) Aspiration pneumonia Current Visit: Yes Status: Acute Assessment and plan: CXR findings consistent with Aspiration PNA will continue IV abx (Vanco and Merrem) f/u blood cultures will maintain aspiration precautions patient to sit up right in chair for meals O2 supplementation as needed will closely monitor respiratory status Will do mechanically altered diet Qualifiers: Aspiration pneumonia type: unspecified Laterality: bilateral Lung location: lower lobe of lung Qualified Code(s): J69.0 - Pneumonitis due to inhalation of food and vomit (2) Sacral decubitus ulcer Current Visit: Yes Status: Acute Assessment and plan: Wound cultures positive for E.coli ESBL, proteus mirabilis, and enteroccocus species, only sensitive to Carbapenems. Continue Meropenem and Vancomycin monitor vanco trough daily wound care Family states they would like to take the patient when ready after discharge however if he needs IV abx, then they would prefer if he went to an ECF. 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, stage 4 (3) Paraplegia Current Visit: Yes Status: Chronic (4) CVA (cerebral vascular accident) Current Visit: Yes Status: Chronic Assessment and plan: history of CVA with right sided residual deficit continue lipitor and plavix Qualifiers: CVA mechanism: unspecified Qualified Code(s): I63.9 - Cerebral infarction, unspecified (5) DVT prophylaxis Current Visit: Yes Status: Acute Assessment and plan: heparin SQ (6) Electrolyte abnormality Current Visit: Yes Status: Resolved Assessment and plan: Hypomagnesemia, Hypophosphatemia Mg and Phos supplemented continue to monitor electrolytes and replace as needed - Subjective Interval history: Patient seen and examined with daughter at bedside. Patient eating breakfast and reports of feeling better compared to previous day. He remains O2 dependent. No overnight issues reported. - Constitutional Vitals: Temp Pulse Resp BP Pulse Ox 99.0 F 100 16 91/45 95 03/05/17 07:11 03/05/17 07:11 03/05/17 07:54 03/05/17 07:11 03/05/17 07:54 General appearance: Present: A&O X 1, no acute distress, underweight - Head Head exam: Present: atraumatic, normocephalic - Respiratory Respiratory exam: Absent: respiratory distress, wheezes - Cardiovascular Cardiovascular exam: Present: RRR, +S1, +S2. Absent: diastolic murmur, gallop, rubs, systolic murmur - GI/Abdominal GI/Abdominal exam: Present: normal bowel sounds, soft, no peritoneal signs. Absent: distended, tenderness - Extremities Exam Extremities exam: Present: warm, radial pulses palpable and symmetrical. Absent : calf tenderness - Back Exam Additional comments: stage 3 sacral decubitus - Neurological Exam Neurological exam: Present: alert - Psychiatric Psychiatric exam: Present: normal affect, normal mood Internal Medicine: Result - Labs CBC & Chem 7: 03/05/17 06:42 03/05/17 06:42 Labs: Short CBC 03/05/17 Range/Units 06:42 WBC 7.2 (4.3-11.1) K/mcL Hgb 7.6 L D (12.9-16.9) g/dL Hct 23.6 L (37.5-50.1) % Plt Count 155 (140-400) K/mcL Neutrophils # 4.5 (1.6-8.9) K/mcL BMP 03/05/17 06:42 Sodium 138 Potassium 3.9 Chloride 108 Carbon Dioxide 23 BUN 23 Creatinine 1.01 Glucose 122 H Calcium 8.2 L Consult Discharge Plan - Plan Additional Instructions: wash buttock wound with soap and water daily and prn soilage, get 1 4x4 gauze moist with saline (not sloppy wet) and apply santyl and gentamicin ointment to gauze and mix/rub into gauze, pack into wound, cover with dry 4x4 gauze and secure with medipore tape, change daily and prn soilage Referrals: Lynne Fontaine MD [Partnered Physician] - (follow up with me in wound care this wednesday) Deniz Ramos MD [Non-Partnered Physician] -
[2017-03-05 10:58] LABS: Hematocrit 22.6 % (37.5-50.1); Hemoglobin 7.2 g/dL (12.9-16.9)
--- NOTE | 2017-03-05 13:45 | Infectious Disease Consult ---
Date of Encounter: 03/05/17 Time of Encounter: 13:38 Assessment and Plan (1) Sepsis Status: Acute Assessment and plan: The patient developed sepsis-like picture after admission with fever, tachycardia, and leukocytosis. Likely secondary to aspiration PNA. Improved. WBC and tachycardia have improved. The patient continues to have intermittent fevers. Blood cultures drawn 03/03/17 are NGTD x 2 sets. Qualifiers: Qualified Code(s): A41.9 - Sepsis, unspecified organism (2) Aspiration pneumonia Status: Acute Assessment and plan: Patient was noted to have an aspiration event a couple of days ago. He has continues to have intermittent fevers since then. Speech therapy consulted and recommendations noted. Patient currently on mechanically altered diet and aspiration precautions. Recommend aggressive pulmonary toileting. Continue antibiotics as above. Qualifiers: Qualified Code(s): J69.0 - Pneumonitis due to inhalation of food and vomit (3) Infected wound Status: Acute Assessment and plan: Location: Left buttock. Causative organism: E. coli ESBL, Proteus mirabilis, Enterococcus species. Secondary to decubitus ulcer. CT of the abdomen and pelvis showed a soft tissue defect without OM or abscess. Clinically, the wound looks okay. No foul odor, purulent drainage, or necrosis. Does not appear to probe to the bone. ESR elevated at 78. Given elevated ESR, consider MRI to rule out OM as CT scan is not very sensitive. General surgery team consulted and following. Recommend aggressive wound care and frequent turning. Continue Meropenem 1 gram IV Q12H (dose for CrCl ~47). Continue Vancomycin IV. Pharmacy to dose. Duration of treatment depends on the clinical picture. Monitor renal function and for drug toxicity and dose-adjust antibiotics (4) Sacral decubitus ulcer Status: Acute Qualifiers: Qualified Code(s): L89.153 - Pressure ulcer of sacral region, stage 3 (5) Paraplegia Status: Chronic Infectious Disease HPI - Data of Consult Patient: new to practice Consult date: 03/05/17 Requesting Physician: Deya Blankenship MD Primary Care Provider: PCP NONE - Consult Narrative Reason for consult: Decubitus ulcer infection History of present illness: Mr. Ac is a 86 year old male 's medical history of dementia, hypertension, TIA, and functional paraplegia. The patient was admitted to the hospital March 01 for an infected decubitus ulcer. We are consulted March 05 for antibiotic recommendations regarding decubitus ulcer infection. The patient is an 86-year-old male with past medical history as stated above. The patient's dementia is somewhat precludes his ability to provide me with any history relating to the admission, therefore, most of the information is obtained from the medical record. Rarely, the patient has had a sacral decubitus ulcer for an unknown amount of time and was seeing a wound care doctor up at [facility]. He apparently had a couple of stitches placed last week to attempt to close the wound and his granddaughter who cares for him noted that the wound had more drainage and was more red and looked very good. She presented to the emergency department with him on the day of admission. Upon arrival, the patient was afebrile and hemodynamically stable. His white blood cell count was normal. ESR was elevated at 78. CT of the abdomen and pelvis was completed that was negative for ostomy myelitis or abscess. A wound culture was obtained that has come back positive for Escherichia coli ESBL, enterococcus species, and Proteus mirabilis. The patient was started empirically on IV antibiotics and admitted to the hospital for further evaluation and treatment. Since admission, the patient's white blood cell count did go up after an episode of aspiration, but has again normalize. He does continue to have some intermittent fevers. Blood cultures obtained on March 03 are no growth to date 2 sets. Chest x-ray completed at the same time revealed bibasilar opacities concerning for atelectasis versus aspiration early, the patient is on IV vancomycin and IV meropenem. We've been asked to evaluate and make further recommendations. During my exam today, there is no family at the bedside and the patient appears somewhat confused. He cannot tell me about anything prior to his hospitalization. Currently, the patient denies any complaints. He denies any fevers or chills or rigors. He denies any headache or neck pain. He denies any congestion, earache, or sore throat. He denies any chest pain, shortness of breath, or cough. He denies any nausea, vomiting, diarrhea, or constipation. The patient has a Xie catheter in his bladder and cannot tell me if this is something that he has all the time or just since being in the hospital. He denies any pain in his back, extremities, or neck. He states his appetite is been good. He is able to tell me that he lives with his granddaughter. He is unsure how long ulcer is been there or what caused it. He cannot relate any information regarding to his visit with the wound care doctor last week. CC: Deya Blankenship MD Past Med Surg Social Fam HX - Past Medical History Attestation: Yes The following information was validated with the patient. Source: old records reviewed, nursing notes reviewed Medical history: other (Dementia, paraplegia, TIA) Psychiatric history: depression - Past Surgical History Surgical History: cancer surgery - Social History Smoking Status: Former smoker Smokeless Tobacco Status: No Alcohol use: none Drug use: none Current living situation: With Family Activity Level: Wheelchair bound Recent Out of Country Travel Within the Last 8 Weeks: No Exposure or Possible Exposure to Illness During Travel: No Infectious Disease-CN:Meds Atorvastatin [Lipitor] 10 mg PO HS 03/01/17 [History] Baclofen [Lioresal] 10 mg PO BID PRN 03/01/17 [History] Cholecalciferol (Vitamin D3) [Vitamin D3] 2,000 unit PO DAILY 03/01/17 [History] Clopidogrel [Plavix] 75 mg PO DAILY 03/01/17 [History] Cyanocobalamin (Vitamin B-12) [Vitamin B-12] 500 mcg PO DAILY 03/01/17 [History] Gabapentin [Neurontin] 200 mg PO TID 03/01/17 [History] Ibuprofen [Motrin] 400 mg PO Q6H PRN 03/01/17 [History] Ertapenem [INVanz] 1,000 mg IVPB DAILY #7 vial 03/09/17 [Rx] Vancomycin [Vancocin (wt based)] 1,000 mg IV DAILY #5 vial 03/09/17 [Rx] Ascorbic Acid [Vitamin C] 500 mg PO BID #20 tablet 03/10/17 [Rx] Collagenase Oint [Santyl] 1 appl TP DAILY #1 tube 03/10/17 [Rx] Gentamicin Oint [Garamycin] 1 appl TP DAILY #1 tube 03/10/17 [Rx] Multivit/Ca/Min/Fe/FA [Thera M Plus] 1 tab PO DAILY #10 tablet 03/10/17 [Rx] 3 Allergy/AdvReac Type Severity Reaction Status Date / Time Penicillins Allergy Swelling Verified 03/01/17 13:51 of Lip/Tongue/Throat ROS unobtainable: due to mental status All systems: reviewed and no additional remarkable complaints except as stated Exam - Constitutional Vitals: Temp Pulse Resp BP Pulse Ox 98.9 F 108 18 119/58 96 03/05/17 11:16 03/05/17 12:41 03/05/17 11:20 03/05/17 11:16 03/05/17 11:20 General appearance: cooperative, no acute distress, thin - Head Head exam: Present: atraumatic, normal inspection, normocephalic - Eye Eye exam: Present: EOMI, normal appearance, PERRL Pupils: Present: normal accommodation - ENT ENT exam: Present: mucous membranes moist - Neck Neck exam: Present: normal inspection - Respiratory Respiratory exam: Present: CTAB. Absent: rales, respiratory distress, rhonchi, wheezes - Cardiovascular Cardiovascular exam: Present: RRR, +S1, +S2 - GI/Abdominal GI/Abdominal exam: Present: normal bowel sounds, soft. Absent: distended, tenderness Additional comments: Xie catheter noted to be draining clear yellow urine. - Extremities Exam Extremities exam: Absent: joint swelling, pedal edema, tenderness Additional comments: Muscle wasting and atrophy noted to the BLE and BUE. - Expanded Back Exam 1 - Stage III decubitus ulcer noted to the left buttock with 50% slough and 50 % granulation tissue noted in the wound bed. No purulent drainage, foul odor, or erythema noted. Wound measures approx 3cm x 2cm x 0.5cm deep. - Neurological Exam Neurological exam: Present: alert, oriented X3. Absent: facial droop, speech deficit - Psychiatric Psychiatric exam: Present: normal affect, normal mood - Skin Skin exam: Present: dry, intact, normal color, warm Infectious Disease CN: Results - Labs CBC & Chem 7: 03/10/17 03:30 03/10/17 03:35 Cultures: Cultures 03/03/17 20:21 Blood Culture - Preliminary Peripheral Venipuncture No growth. 03/03/17 20:21 Blood Culture - Preliminary Peripheral Venipuncture No growth. 03/03/17 18:19 Urine Culture - Final Urine,Clean Catch No growth. Cultures 03/03/17 20:21 Blood Culture - Preliminary Peripheral Venipuncture No growth. 03/03/17 20:21 Blood Culture - Preliminary Peripheral Venipuncture No growth. 03/03/17 18:19 Urine Culture - Final Urine,Clean Catch No growth. 03/01/17 15:44 Wound Culture - Final Buttock Escherichia coli ESBL Enterococcus species Proteus mirabilis Serology: Serology 03/03/17 Range/Units 18:19 Urine Color Yellow (Yellow) Urine Clarity Cloudy A (Clear) Urine pH 6.5 (5.0-8.0) pH Units Ur Specific [place] 1.021 (1.010-1.025) Urine Protein Negative (Neg-Trace) mg/dL Urine Glucose (UA) Normal (Normal) mg/dL Urine Ketones Negative (Negative) mg/dL Urine Blood Moderate H (Negative) Urine Nitrite Negative (Negative) Urine Bilirubin Negative (Negative) Urine Urobilinogen Normal (Normal) mg/dL Ur Leukocyte Esterase Large H (Negative) Urine Microscopic RBC 15-30 H (0-3) per hpf Urine Microscopic WBC 50-100 H (0-3) per hpf Ur Squamous Epith Cells Many H (None-Few) per lpf Urine Bacteria None Seen (None-Few) per hpf Hyaline Casts None Seen (None-Few) per lpf Consult Discharge Plan - Plan Instructions: Chronic Wound Care (DC), Pneumonia (DC) Additional Instructions: wash buttock wound with soap and water daily and prn soilage, get 1 4x4 gauze moist with saline (not sloppy wet) and apply santyl and gentamicin ointment to gauze and mix/rub into gauze, pack into wound, cover with dry 4x4 gauze and secure with medipore tape, change daily and prn soilage Follow-up with your primary care physician in 1-2 weeks. Follow-up with wound clinic as instructed by the wound nurse. Return to the ED of symptoms worsen or new symptoms arise. Referrals: WOUND, CLINIC [Other] - 03/12/17 10:45 am (THIS APPOINTMENT IS WITH DR. DENISE IN WOUND CARE) Deniz Ramos MD [Non-Partnered Physician] - 03/18/17 2:30 pm Prescriptions: Ascorbic Acid [Vitamin C] 500 mg PO BID #20 tablet Collagenase Oint [Santyl] 1 appl TP DAILY #1 tube Ertapenem [INVanz] 1,000 mg IVPB DAILY #7 vial Gentamicin Oint [Garamycin] 1 appl TP DAILY #1 tube Multivit/Ca/Min/Fe/FA [Thera M Plus] 1 tab PO DAILY #10 tablet Vancomycin [Vancocin (wt based)] 1,000 mg IV DAILY #5 vial
[2017-03-05] MEDS: Vancomycin 1,000 MG in D5% in Water 250 ML IVPB SCH (16:49)
[2017-03-06] MEDS: Meropenem 1,000 MG in 0.9 % Sodium Chloride Mini Bag 100 ML IVPB SCH ×3 (00:35→23:28)
[2017-03-06] MEDS: Ipratropium/Albuterol Neb 3 ML IH SCH ×6 (04:30→23:03)
[2017-03-06 04:32] LABS: Eosinophils # 0.5 K/mcL (0.0-0.6); Eosinophils % 7.9 %; Hematocrit 22.6 % (37.5-50.1); Hemoglobin 7.3 g/dL (12.9-16.9); Immature Granulocytes % 0.3 % (0-4); Lymphocytes # 1.1 K/mcL (0.6-4.6); Lymphocytes % 18.9 %; Mean Corpuscular HGB Conc 32.3 g/dL (31.6-35.5); Mean Corpuscular Hemoglobin 30.3 pg (28.0-33.3); Mean Corpuscular Volume 93.8 fL (83.0-100.0); Mean Platelet Volume 10.2 fL (9.4-12.4); Monocytes # 0.7 K/mcL (0.0-1.3); Monocytes % 11.8 %; Neutrophils # 3.6 K/mcL (1.6-8.9); Platelet Count 157 K/mcL (140-400); Red Blood Count 2.41 M/mcL (4.19-5.50); Red Cell Distribution Width 14.3 % (11.5-14.5); Segmented Neutrophils % 61.1 %
[2017-03-06 04:50] LABS: BUN/Creatinine Ratio 22 (6-26); Blood Urea Nitrogen 25 mg/dL (8-26); Carbon Dioxide 25 mEq/L (19-29); Chloride 108 mEq/L (98-109); Glucose 87 mg/dL (70-99); Magnesium 1.8 mg/dL (1.6-2.6); Osmolality,Calculated 290 (280-300); Phosphorous 2.7 mg/dL (2.3-4.7); Potassium 4.3 mEq/L (3.5-4.5); Sodium 138 mEq/L (136-145); eGFR For African Americans > 60 (> 60); eGFR For Non-African Americans > 60 (> 60)
[2017-03-06] MEDS: *HR* Heparin 5,000 UNIT/ML VIAL SQ SCH ×2 (05:38→18:07)
[2017-03-06] MEDS: Ascorbic Acid 500 MG TABLET PO SCH ×2 (08:30→20:22)
[2017-03-06] MEDS: Cholecalciferol (D-3) 1,000 UNIT TABLET PO SCH (08:30)
[2017-03-06] MEDS: Gentamicin Oint 15 GM TUBE TP SCH (08:32)
[2017-03-06] MEDS: Multivit/Ca/Min/Fe/FA 1 TAB TABLET PO SCH (08:44)
--- NOTE | 2017-03-06 08:58 | Internal Med Progress Note ---
Date of Encounter: 03/06/17 Time of Encounter: 08:57 - Assessment and plan (1) Aspiration pneumonia Current Visit: Yes Status: Acute Assessment and plan: CXR findings consistent with Aspiration PNA will continue IV abx (Vanco and Merrem) f/u blood cultures will maintain aspiration precautions patient to sit up right in chair for meals O2 supplementation as needed will closely monitor respiratory status Will do mechanically altered diet Qualifiers: Aspiration pneumonia type: unspecified Laterality: bilateral Lung location: lower lobe of lung Qualified Code(s): J69.0 - Pneumonitis due to inhalation of food and vomit (2) Sacral decubitus ulcer Current Visit: Yes Status: Acute Assessment and plan: Wound cultures positive for E.coli ESBL, proteus mirabilis, and enteroccocus species, only sensitive to Carbapenems. Continue Meropenem and Vancomycin monitor vanco trough daily wound care Family states they would like to take the patient when ready after discharge however if he needs IV abx, then they would prefer if he went to an ECF. ID consultation appreciated will obtain MR pelvis to rule out OM given the current stage of the sacral decubitus Qualifiers: Pressure ulcer stage: stage 3 Qualified Code(s): L89.153 - Pressure ulcer of sacral region, stage 3 (3) Paraplegia Current Visit: Yes Status: Chronic (4) CVA (cerebral vascular accident) Current Visit: Yes Status: Chronic Assessment and plan: history of CVA with right sided residual deficit continue lipitor and plavix Qualifiers: CVA mechanism: unspecified Qualified Code(s): I63.9 - Cerebral infarction, unspecified (5) DVT prophylaxis Current Visit: Yes Status: Acute Assessment and plan: heparin SQ (6) Electrolyte abnormality Current Visit: Yes Status: Resolved (7) Anemia Current Visit: Yes Status: Acute Assessment and plan: H&H low but acceptable will closely monitor will f/u iron studies, ferritin, Vit B12, folate will obtain stool occult transfuse if Hgb<7 Qualifiers: Anemia type: unspecified type Qualified Code(s): D64.9 - Anemia, unspecified - Subjective Interval history: Patient seen and examined at bedside. Patient sitting in chair and eating breakfast. Reports of feeling well at this time. Denies any discomfort. No overnight events reported. - Constitutional Vitals: Temp Pulse Resp BP Pulse Ox 97.1 F L 83 16 102/50 98 03/06/17 08:07 03/06/17 08:07 03/06/17 08:07 03/06/17 08:07 03/06/17 08:07 General appearance: Present: cooperative, A&O X 1, pleasant, no acute distress, underweight - Head Head exam: Present: atraumatic, normocephalic - Eye Eye exam: Present: conjuntiva pink, sclera anicteric - Respiratory Respiratory exam: Present: CTAB. Absent: accessory muscle use, rales, rhonchi, wheezes - Cardiovascular Cardiovascular exam: Present: RRR, +S1, +S2. Absent: diastolic murmur, gallop, rubs, systolic murmur - GI/Abdominal GI/Abdominal exam: Present: normal bowel sounds, soft, no peritoneal signs. Absent: distended, tenderness - Extremities Exam Extremities exam: Present: pedal edema, warm, radial pulses palpable and symmetrical. Absent: calf tenderness - Neurological Exam Neurological exam: Present: alert - Psychiatric Psychiatric exam: Present: normal affect, normal mood Internal Medicine: Result - Labs CBC & Chem 7: 03/06/17 04:21 03/06/17 04:21 Labs: Short CBC 03/05/17 03/06/17 Range/Units 10:51 04:21 WBC 5.9 (4.3-11.1) K/mcL Hgb 7.2 L 7.3 L (12.9-16.9) g/dL Hct 22.6 L 22.6 L (37.5-50.1) % Plt Count 157 (140-400) K/mcL Neutrophils # 3.6 (1.6-8.9) K/mcL BMP 03/06/17 04:21 Sodium 138 Potassium 4.3 Chloride 108 Carbon Dioxide 25 BUN 25 Creatinine 1.14 Glucose 87 Calcium 8.0 L Consult Discharge Plan - Plan Additional Instructions: wash buttock wound with soap and water daily and prn soilage, get 1 4x4 gauze moist with saline (not sloppy wet) and apply santyl and gentamicin ointment to gauze and mix/rub into gauze, pack into wound, cover with dry 4x4 gauze and secure with medipore tape, change daily and prn soilage Referrals: Lynne Fontaine MD [Partnered Physician] - (follow up with me in wound care this wednesday) Deniz Ramos MD [Non-Partnered Physician] -
[2017-03-06 08:59] LABS: % Iron Saturation 14 % (20-55); Iron 21 mcg/dL (65-175); Transferrin 107 mg/dL (174-364)
[2017-03-06 09:11] LABS: Ferritin 587 ng/ml (22-275)
[2017-03-06] MEDS: Gabapentin 100 MG CAPSULE PO SCH ×3 (09:20→20:22)
[2017-03-06] MEDS: Cyanocobalamin (B-12) 1,000 MCG TABLET PO SCH (09:20)
[2017-03-06] MEDS: Vancomycin 1,000 MG in D5% in Water 250 ML IVPB SCH (17:48)
[2017-03-07] MEDS: Acetaminophen 325 MG TABLET PO PRN (00:20)
[2017-03-07] MEDS: Ipratropium/Albuterol Neb 3 ML IH SCH ×6 (04:23→23:14)
[2017-03-07] MEDS: *HR* Heparin 5,000 UNIT/ML VIAL SQ SCH ×2 (05:02→16:59)
[2017-03-07 07:10] LABS: Basophils % 0.2 %; Eosinophils # 0.4 K/mcL (0.0-0.6); Eosinophils % 7.7 %; Hematocrit 23.6 % (37.5-50.1); Hemoglobin 7.6 g/dL (12.9-16.9); Immature Granulocytes % 0.7 % (0-4); Lymphocytes # 1.4 K/mcL (0.6-4.6); Mean Corpuscular HGB Conc 32.2 g/dL (31.6-35.5); Mean Corpuscular Hemoglobin 29.8 pg (28.0-33.3); Mean Corpuscular Volume 92.5 fL (83.0-100.0); Mean Platelet Volume 10.4 fL (9.4-12.4); Monocytes # 0.7 K/mcL (0.0-1.3); Monocytes % 11.9 %; Neutrophils # 3.1 K/mcL (1.6-8.9); Platelet Count 206 K/mcL (140-400); Red Blood Count 2.55 M/mcL (4.19-5.50); Red Cell Distribution Width 14.3 % (11.5-14.5); Segmented Neutrophils % 54.5 %
[2017-03-07 07:12] LABS: BUN/Creatinine Ratio 25 (6-26); Blood Urea Nitrogen 27 mg/dL (8-26); Calcium 8.3 mg/dL (8.6-10.8); Carbon Dioxide 27 mEq/L (19-29); Chloride 109 mEq/L (98-109); Glucose 92 mg/dL (70-99); Magnesium 1.7 mg/dL (1.6-2.6); Osmolality,Calculated 295 (280-300); Phosphorous 2.8 mg/dL (2.3-4.7); Sodium 140 mEq/L (136-145); eGFR For African Americans > 60 (> 60); eGFR For Non-African Americans > 60 (> 60)
[2017-03-07 07:45] LABS: Folate 7.1 ng/mL (7.0-31.4)
[2017-03-07] MEDS: Multivit/Ca/Min/Fe/FA 1 TAB TABLET PO SCH (08:41)
[2017-03-07] MEDS: Gabapentin 100 MG CAPSULE PO SCH ×3 (08:42→21:44)
[2017-03-07] MEDS: Cholecalciferol (D-3) 1,000 UNIT TABLET PO SCH (08:42)
[2017-03-07] MEDS: Ascorbic Acid 500 MG TABLET PO SCH ×2 (08:42→21:44)
[2017-03-07] MEDS: Cyanocobalamin (B-12) 1,000 MCG TABLET PO SCH (08:42)
[2017-03-07] MEDS: Meropenem 1,000 MG in 0.9 % Sodium Chloride Mini Bag 100 ML IVPB SCH (12:02)
[2017-03-07] MEDS: Gentamicin Oint 15 GM TUBE TP SCH (13:44)
--- NOTE | 2017-03-07 14:17 | Internal Med Progress Note ---
Date of Encounter: 03/07/17 Time of Encounter: 14:15 - Assessment and plan (1) Aspiration pneumonia Current Visit: Yes Status: Acute Assessment and plan: CXR findings consistent with Aspiration PNA will continue IV abx (Vanco and Merrem) f/u official blood culture report will maintain aspiration precautions patient to sit up right in chair for meals O2 supplementation as needed will closely monitor respiratory status Will do mechanically altered diet Qualifiers: Aspiration pneumonia type: unspecified Laterality: bilateral Lung location: lower lobe of lung Qualified Code(s): J69.0 - Pneumonitis due to inhalation of food and vomit (2) Sacral decubitus ulcer Current Visit: Yes Status: Acute Assessment and plan: Wound cultures positive for E.coli ESBL, proteus mirabilis, and enteroccocus species, only sensitive to Carbapenems. Continue Meropenem and Vancomycin monitor vanco trough daily wound care Family states they would like to take the patient when ready after discharge however if he needs IV abx, then they would prefer if he went to an ECF. 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 Qualifiers: Pressure ulcer stage: stage 3 Qualified Code(s): L89.153 - Pressure ulcer of sacral region, stage 3 (3) Paraplegia Current Visit: Yes Status: Chronic (4) CVA (cerebral vascular accident) Current Visit: Yes Status: Chronic Assessment and plan: history of CVA with right sided residual deficit continue lipitor and plavix Qualifiers: CVA mechanism: unspecified Qualified Code(s): I63.9 - Cerebral infarction, unspecified (5) DVT prophylaxis Current Visit: Yes Status: Acute Assessment and plan: heparin SQ (6) Electrolyte abnormality Current Visit: Yes Status: Resolved Assessment and plan: continue to monitor electrolytes and supplement as needed (7) Anemia Current Visit: Yes Status: Acute Assessment and plan: H&H low but acceptable will closely monitor iron studies consistent with chronic disease stool occult negative will closely monitor transfuse if Hgb<7 Qualifiers: Anemia type: unspecified type Qualified Code(s): D64.9 - Anemia, unspecified - Subjective Interval history: Patient seen and examined at bedside. Patient resting in bed and reports of feeling better. currently saturating well on room air and denies any discomfort at this time. No overnight issues were reported. - Constitutional Vitals: Temp Pulse Resp BP Pulse Ox 97.9 F 91 16 138/60 92 03/07/17 11:01 03/07/17 12:10 03/07/17 11:01 03/07/17 11:01 03/07/17 11:01 General appearance: Present: cooperative, A&O X 1, pleasant, no acute distress, underweight - Head Head exam: Present: atraumatic, normocephalic - Eye Eye exam: Present: conjuntiva pink, sclera anicteric - Respiratory Respiratory exam: Absent: respiratory distress, wheezes - Cardiovascular Cardiovascular exam: Present: RRR, +S1, +S2. Absent: diastolic murmur, gallop, rubs, systolic murmur - GI/Abdominal GI/Abdominal exam: Present: normal bowel sounds, soft, no peritoneal signs. Absent: distended, tenderness - Extremities Exam Extremities exam: Present: warm, radial pulses palpable and symmetrical. Absent : calf tenderness - Back Exam Additional comments: stage 3 sacral decubitus - Neurological Exam Neurological exam: Present: alert - Psychiatric Psychiatric exam: Present: normal affect, normal mood Internal Medicine: Result - Labs CBC & Chem 7: 03/07/17 06:37 03/07/17 06:37 Labs: Short CBC 03/07/17 Range/Units 06:37 WBC 5.7 (4.3-11.1) K/mcL Hgb 7.6 L (12.9-16.9) g/dL Hct 23.6 L (37.5-50.1) % Plt Count 206 (140-400) K/mcL Neutrophils # 3.1 (1.6-8.9) K/mcL BMP 03/07/17 06:37 Sodium 140 Potassium 4.0 Chloride 109 Carbon Dioxide 27 BUN 27 H Creatinine 1.10 Glucose 92 Calcium 8.3 L Consult Discharge Plan - Plan Additional Instructions: wash buttock wound with soap and water daily and prn soilage, get 1 4x4 gauze moist with saline (not sloppy wet) and apply santyl and gentamicin ointment to gauze and mix/rub into gauze, pack into wound, cover with dry 4x4 gauze and secure with medipore tape, change daily and prn soilage Referrals: Lynne Fontaine MD [Partnered Physician] - (follow up with me in wound care this wednesday) Deniz Ramos MD [Non-Partnered Physician] -
[2017-03-07] MEDS: Vancomycin 1,000 MG in D5% in Water 250 ML IVPB SCH (16:59)
[2017-03-08] MEDS: Meropenem 1,000 MG in 0.9 % Sodium Chloride Mini Bag 100 ML IVPB SCH ×2 (00:30→12:00)
[2017-03-08] MEDS: Ipratropium/Albuterol Neb 3 ML IH SCH ×5 (04:04→19:52)
[2017-03-08 08:05] LABS: Basophils % 0.2 %; Eosinophils # 0.3 K/mcL (0.0-0.6); Eosinophils % 5.8 %; Hematocrit 24.5 % (37.5-50.1); Hemoglobin 7.8 g/dL (12.9-16.9); Immature Granulocytes % 0.7 % (0-4); Lymphocytes # 1.4 K/mcL (0.6-4.6); Lymphocytes % 25.5 %; Mean Corpuscular HGB Conc 31.8 g/dL (31.6-35.5); Mean Corpuscular Hemoglobin 29.8 pg (28.0-33.3); Mean Corpuscular Volume 93.5 fL (83.0-100.0); Mean Platelet Volume 10.5 fL (9.4-12.4); Monocytes # 0.6 K/mcL (0.0-1.3); Monocytes % 10.7 %; Platelet Count 203 K/mcL (140-400); Red Blood Count 2.62 M/mcL (4.19-5.50); Red Cell Distribution Width 14.5 % (11.5-14.5); Segmented Neutrophils % 57.1 %
[2017-03-08 08:20] LABS: Neutrophils # 3.1 K/mcL (1.6-8.9)
[2017-03-08] MEDS: Cholecalciferol (D-3) 1,000 UNIT TABLET PO SCH (08:40)
[2017-03-08] MEDS: Multivit/Ca/Min/Fe/FA 1 TAB TABLET PO SCH (08:40)
[2017-03-08] MEDS: Gabapentin 100 MG CAPSULE PO SCH ×3 (08:40→20:17)
[2017-03-08] MEDS: Ascorbic Acid 500 MG TABLET PO SCH ×2 (08:40→20:17)
[2017-03-08] MEDS: Cyanocobalamin (B-12) 1,000 MCG TABLET PO SCH (08:41)
[2017-03-08] MEDS: *HR* Heparin 5,000 UNIT/ML VIAL SQ SCH ×2 (08:41→18:18)
[2017-03-08] MEDS: Gentamicin Oint 15 GM TUBE TP SCH (08:41)
[2017-03-08 10:17] LABS: BUN/Creatinine Ratio 26 (6-26); Blood Urea Nitrogen 23 mg/dL (8-26); Calcium 8.3 mg/dL (8.6-10.8); Carbon Dioxide 29 mEq/L (19-29); Chloride 110 mEq/L (98-109); Glucose 94 mg/dL (70-99); Magnesium 1.7 mg/dL (1.6-2.6); Osmolality,Calculated 295 (280-300); Phosphorous 2.7 mg/dL (2.3-4.7); Potassium 4.1 mEq/L (3.5-4.5); Sodium 141 mEq/L (136-145); eGFR For African Americans > 60 (> 60); eGFR For Non-African Americans > 60 (> 60)
--- NOTE | 2017-03-08 10:52 | Internal Med Progress Note ---
Date of Encounter: 03/08/17 Time of Encounter: 09:35 - Assessment and plan (1) Aspiration pneumonia Current Visit: Yes Status: Acute Assessment and plan: CXR findings consistent with Aspiration PNA will continue IV abx (Vanco and Merrem) f/u official blood culture report will maintain aspiration precautions patient to sit up right in chair for meals O2 supplementation as needed will closely monitor respiratory status Will do mechanically altered diet Qualifiers: Aspiration pneumonia type: unspecified Laterality: bilateral Lung location: lower lobe of lung Qualified Code(s): J69.0 - Pneumonitis due to inhalation of food and vomit (2) Sacral decubitus ulcer Current Visit: Yes Status: Acute Assessment and plan: Wound cultures positive for E.coli ESBL, proteus mirabilis, and enteroccocus species, only sensitive to Carbapenems. Continue Meropenem and Vancomycin monitor vanco trough daily wound care Family states they would like to take the patient when ready after discharge however if he needs IV abx, then they would prefer if he went to an ECF. 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 Qualifiers: Pressure ulcer stage: stage 3 Qualified Code(s): L89.153 - Pressure ulcer of sacral region, stage 3 (3) Paraplegia Current Visit: Yes Status: Chronic (4) CVA (cerebral vascular accident) Current Visit: Yes Status: Chronic Assessment and plan: history of CVA with right sided residual deficit continue lipitor and plavix Qualifiers: CVA mechanism: unspecified Qualified Code(s): I63.9 - Cerebral infarction, unspecified (5) DVT prophylaxis Current Visit: Yes Status: Acute Assessment and plan: heparin SQ (6) Electrolyte abnormality Current Visit: Yes Status: Resolved Assessment and plan: continue to monitor electrolytes and supplement as needed (7) Anemia Current Visit: Yes Status: Acute Assessment and plan: H&H low but acceptable will closely monitor iron studies consistent with chronic disease stool occult negative will closely monitor transfuse if Hgb<7 Qualifiers: Anemia type: unspecified type Qualified Code(s): D64.9 - Anemia, unspecified - Subjective Interval history: Patient seen and examined at bedside. Patient resting in bed and reports of feeling better. currently saturating well on room air and denies any discomfort at this time. No overnight issues were reported. Discharge pending ID follow up and d/c abx likely d/c in am depending on ID recommendations - Constitutional Vitals: Temp Pulse Resp BP Pulse Ox 98.3 F 94 18 127/57 91 03/08/17 08:30 03/08/17 08:30 03/08/17 08:30 03/08/17 08:30 03/08/17 08:30 General appearance: Present: cooperative, A&O X 1, pleasant, no acute distress, underweight - Head Head exam: Present: atraumatic, normocephalic - Eye Eye exam: Present: conjuntiva pink, sclera anicteric - Respiratory Respiratory exam: Absent: respiratory distress, wheezes - Cardiovascular Cardiovascular exam: Present: RRR, +S1, +S2. Absent: diastolic murmur, gallop, rubs, systolic murmur - GI/Abdominal GI/Abdominal exam: Present: normal bowel sounds, soft, no peritoneal signs. Absent: distended, tenderness - Extremities Exam Extremities exam: Present: warm, radial pulses palpable and symmetrical. Absent : calf tenderness - Back Exam Additional comments: stage III decubitus - Neurological Exam Neurological exam: Present: alert - Psychiatric Psychiatric exam: Present: normal affect, normal mood Internal Medicine: Result - Labs CBC & Chem 7: 03/08/17 07:17 03/08/17 07:17 Labs: Short CBC 03/08/17 Range/Units 07:17 WBC 5.5 (4.3-11.1) K/mcL Hgb 7.8 L (12.9-16.9) g/dL Hct 24.5 L (37.5-50.1) % Plt Count 203 (140-400) K/mcL Neutrophils # 3.1 (1.6-8.9) K/mcL BMP 03/08/17 07:17 Sodium 141 Potassium 4.1 Chloride 110 H Carbon Dioxide 29 BUN 23 Creatinine 0.89 Glucose 94 Calcium 8.3 L Consult Discharge Plan - Plan Additional Instructions: wash buttock wound with soap and water daily and prn soilage, get 1 4x4 gauze moist with saline (not sloppy wet) and apply santyl and gentamicin ointment to gauze and mix/rub into gauze, pack into wound, cover with dry 4x4 gauze and secure with medipore tape, change daily and prn soilage Referrals: WOUND, CLINIC [Other] - 03/12/17 10:45 am (THIS APPOINTMENT IS WITH DR. DENISE IN WOUND CARE) Deniz Ramos MD [Non-Partnered Physician] - 03/18/17 2:30 pm
--- NOTE | 2017-03-08 14:09 | Infectious Disease Progress No ---
Date of Encounter: 03/08/17 Time of Encounter: 14:07 - Assessment and Plan (1) Sepsis Current Visit: Yes Status: Acute The patient developed sepsis-like picture after admission with fever, tachycardia, and leukocytosis. Likely secondary to aspiration PNA. Improved. WBC and tachycardia have improved. The patient has been afebrile >24 hours. Blood cultures drawn 03/03/17 are negative x 2 sets. Qualifiers: Sepsis type: sepsis due to unspecified organism Qualified Code(s): A41.9 - Sepsis, unspecified organism (2) Aspiration pneumonia Current Visit: Yes Status: Acute Patient was noted to have an aspiration event a couple of days ago. Speech therapy consulted and recommendations noted. Patient currently on mechanically altered diet and aspiration precautions. Recommend aggressive pulmonary toileting. Continue antibiotics as below. Qualifiers: Aspiration pneumonia type: unspecified Laterality: bilateral Lung location: lower lobe of lung Qualified Code(s): J69.0 - Pneumonitis due to inhalation of food and vomit (3) Infected wound Current Visit: Yes Status: Acute Location: Left buttock. Causative organism: E. coli ESBL, Proteus mirabilis, Enterococcus species. Secondary to decubitus ulcer. CT of the abdomen and pelvis showed a soft tissue defect without OM or abscess. Clinically, the wound looks okay. No foul odor, purulent drainage, or necrosis. Does not appear to probe to the bone. ESR elevated at 78. Given elevated ESR, consider MRI to rule out OM as CT scan is not very sensitive. General surgery team consulted and following. Recommend aggressive wound care and frequent turning. Discontinue Meropenem. Start Ertapenem 1 gram IV daily in preparation for discharge. (CrCl~ 53) Continue Vancomycin IV. Pharmacy to dose. Duration of treatment depends on the clinical picture, but wound recommend a total of 14 days of IV antibiotics. Continue Vancomycin through 03/15/17 and Ertapenem through 03/17/17. Monitor renal function and for drug toxicity and dose-adjust antibiotics (4) Sacral decubitus ulcer Current Visit: Yes Status: Acute Qualifiers: Pressure ulcer stage: stage 3 Qualified Code(s): L89.153 - Pressure ulcer of sacral region, stage 3 (5) Paraplegia Current Visit: Yes Status: Chronic - Subjective Interval history: Patient seen and examined. No acute events noted overnight. Patient resting quietly in bed. Complains of chronic pain in his right foot that causes RLE jerking, but denies other complaints. Denies fevers or chills. Denies chest pain , shortness of breath. Reports a moist cough with scant yellow sputum. Denies nausea, vomiting, diarrhea or constipation. Denies abdominal pain. Has a salazar catheter that remains patent with clear yellow urine. Denies oral thrush or new skin lesions. Infect Dis PN-Objective Data - Labs CBC & Chem 7: 03/08/17 07:17 03/08/17 07:17 Labs: Laboratory Results - last 24 hr 03/08/17 03/08/17 07:17 07:17 WBC 5.5 RBC 2.62 L Hgb 7.8 L Hct 24.5 L MCV 93.5 MCH 29.8 MCHC 31.8 RDW 14.5 Plt Count 203 MPV 10.5 Immature Gran % 0.7 Seg Neutrophils % 57.1 Lymphocytes % 25.5 Monocytes % 10.7 Eosinophils % 5.8 Basophils % 0.2 Neutrophils # 3.1 Lymphocytes # 1.4 Monocytes # 0.6 Eosinophils # 0.3 Basophils # 0.0 Sodium 141 Potassium 4.1 Chloride 110 H Carbon Dioxide 29 BUN 23 Creatinine 0.89 Est GFR ( Amer) > 60 Est GFR (Non-Af Amer) > 60 BUN/Creatinine Ratio 26 Glucose 94 Calculated Osmolality 295 Calcium 8.3 L Phosphorus 2.7 Magnesium 1.7 Cultures: Cultures 03/03/17 20:21 Blood Culture - Preliminary Peripheral Venipuncture No growth. 03/03/17 20:21 Blood Culture - Preliminary Peripheral Venipuncture No growth. 03/03/17 18:19 Urine Culture - Final Urine,Clean Catch No growth. Serology 03/06/17 03/03/17 Range/Units 11:10 18:19 Urine Color Yellow (Yellow) Urine Clarity Cloudy A (Clear) Urine pH 6.5 (5.0-8.0) pH Units Ur Specific [place] 1.021 (1.010-1.025) Urine Protein Negative (Neg-Trace) mg/dL Urine Glucose (UA) Normal (Normal) mg/dL Urine Ketones Negative (Negative) mg/dL Urine Blood Moderate H (Negative) Urine Nitrite Negative (Negative) Urine Bilirubin Negative (Negative) Urine Urobilinogen Normal (Normal) mg/dL Ur Leukocyte Esterase Large H (Negative) Urine Microscopic RBC 15-30 H (0-3) per hpf Urine Microscopic WBC 50-100 H (0-3) per hpf Ur Squamous Epith Cells Many H (None-Few) per lpf Urine Bacteria None Seen (None-Few) per hpf Hyaline Casts None Seen (None-Few) per lpf Stool Occult Blood Negative (Negative) Exam - Constitutional Vitals: Temp Pulse Resp BP Pulse Ox 97.8 F 97 18 118/60 90 03/08/17 12:00 03/08/17 12:00 03/08/17 12:00 03/08/17 12:00 03/08/17 12:00 General appearance: cooperative, no acute distress, thin - Head Head exam: Present: atraumatic, normal inspection, normocephalic - Eye Eye exam: Present: EOMI, normal appearance, PERRL - ENT ENT exam: Present: mucous membranes moist - Neck Neck exam: Present: normal inspection - Respiratory Respiratory exam: Present: CTAB. Absent: rales, respiratory distress, rhonchi, wheezes - Cardiovascular Cardiovascular exam: Present: +S1, +S2, tachycardia - GI/Abdominal GI/Abdominal exam: Present: normal bowel sounds, soft. Absent: distended, tenderness Additional comments: Salazar catheter noted to be draining clear yellow urine. - Extremities Exam Extremities exam: Absent: joint swelling, pedal edema, tenderness Additional comments: Muscle atrophy noted to all four extremities. - Back Exam Additional comments: Sacral wound dressing C/D/I. - Neurological Exam Neurological exam: Present: alert. Absent: oriented X3 (Oriented to person and place only.), facial droop, speech deficit - Psychiatric Psychiatric exam: Present: normal affect, normal mood - Skin Skin exam: Present: dry, intact, normal color, warm Consult Discharge Plan - Plan Additional Instructions: wash buttock wound with soap and water daily and prn soilage, get 1 4x4 gauze moist with saline (not sloppy wet) and apply santyl and gentamicin ointment to gauze and mix/rub into gauze, pack into wound, cover with dry 4x4 gauze and secure with medipore tape, change daily and prn soilage Referrals: WOUND, CLINIC [Other] - 03/12/17 10:45 am (THIS APPOINTMENT IS WITH DR. DENISE IN WOUND CARE) Deniz Ramos MD [Non-Partnered Physician] - 03/18/17 2:30 pm
[2017-03-08] MEDS: Ertapenem 1,000 MG in 0.9 % Sodium Chloride Mini Bag 100 ML IVPB SCH (14:33)
[2017-03-08] MEDS: Vancomycin 1,000 MG in D5% in Water 250 ML IVPB SCH (18:18)
--- NOTE | 2017-03-08 20:39 | Electrocardiograph Report ---
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
[2017-03-09] MEDS: Ipratropium/Albuterol Neb 3 ML IH SCH ×7 (00:19→23:55)
[2017-03-09 04:17] LABS: Basophils % 0.1 %; Eosinophils # 0.5 K/mcL (0.0-0.6); Eosinophils % 6.6 %; Hematocrit 23.2 % (37.5-50.1); Hemoglobin 7.5 g/dL (12.9-16.9); Immature Granulocytes % 0.7 % (0-4); Lymphocytes # 2.1 K/mcL (0.6-4.6); Lymphocytes % 27.2 %; Mean Corpuscular HGB Conc 32.3 g/dL (31.6-35.5); Mean Corpuscular Hemoglobin 30.7 pg (28.0-33.3); Mean Corpuscular Volume 95.1 fL (83.0-100.0); Mean Platelet Volume 10.1 fL (9.4-12.4); Monocytes # 0.8 K/mcL (0.0-1.3); Monocytes % 10.7 %; Neutrophils # 4.2 K/mcL (1.6-8.9); Platelet Count 197 K/mcL (140-400); Red Blood Count 2.44 M/mcL (4.19-5.50); Red Cell Distribution Width 14.6 % (11.5-14.5); Segmented Neutrophils % 54.7 %
[2017-03-09 04:31] LABS: BUN/Creatinine Ratio 25 (6-26); Blood Urea Nitrogen 22 mg/dL (8-26); Calcium 8.3 mg/dL (8.6-10.8); Carbon Dioxide 29 mEq/L (19-29); Chloride 110 mEq/L (98-109); Glucose 95 mg/dL (70-99); Magnesium 1.4 mg/dL (1.6-2.6); Osmolality,Calculated 299 (280-300); Phosphorous 2.3 mg/dL (2.3-4.7); Potassium 4.4 mEq/L (3.5-4.5); Sodium 143 mEq/L (136-145); eGFR For African Americans > 60 (> 60); eGFR For Non-African Americans > 60 (> 60)
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
[2017-03-09] MEDS: *HR* Heparin 5,000 UNIT/ML VIAL SQ SCH ×2 (09:00→17:46)
[2017-03-09] MEDS: Ertapenem 1,000 MG in 0.9 % Sodium Chloride Mini Bag 100 ML IVPB SCH (09:00)
[2017-03-09] MEDS ORDERED: Magnesium Sulfate 2 GM in D5% in Water 100 ML IVPB ONE (09:30)
[2017-03-09] MEDS: Gentamicin Oint 15 GM TUBE TP SCH (10:47)
[2017-03-09] MEDS: Cholecalciferol (D-3) 1,000 UNIT TABLET PO SCH (10:48)
[2017-03-09] MEDS: Multivit/Ca/Min/Fe/FA 1 TAB TABLET PO SCH (10:48)
[2017-03-09] MEDS: Cyanocobalamin (B-12) 1,000 MCG TABLET PO SCH (10:48)
[2017-03-09] MEDS: Ascorbic Acid 500 MG TABLET PO SCH ×2 (10:48→20:32)
[2017-03-09] MEDS: Gabapentin 100 MG CAPSULE PO SCH ×3 (10:48→20:32)
[2017-03-09] MEDS ORDERED: Aminoglycoside Consult 1 EACH MC ONE (11:43)
--- NOTE | 2017-03-09 12:43 | Discharge Summary ---
Date of Encounter: 03/09/17 - Discharge Diagnosis (1) Sacral decubitus ulcer Status: Acute Qualifiers: Pressure ulcer stage: stage 3 Qualified Code(s): L89.153 - Pressure ulcer of sacral region, stage 3 (2) Paraplegia Status: Chronic (3) Aspiration pneumonia Status: Acute Qualifiers: Aspiration pneumonia type: unspecified Laterality: bilateral Lung location: lower lobe of lung Qualified Code(s): J69.0 - Pneumonitis due to inhalation of food and vomit (4) Sepsis Status: Acute Qualifiers: Sepsis type: sepsis due to unspecified organism Qualified Code(s): A41.9 - Sepsis, unspecified organism (5) Anemia Status: Acute Qualifiers: Anemia type: unspecified type Qualified Code(s): D64.9 - Anemia, unspecified (6) DVT prophylaxis Status: Acute - Discharge Medications Prescriptions: Ertapenem [INVanz] 1,000 mg IVPB DAILY #7 vial Vancomycin [Vancocin (wt based)] 1,000 mg IV DAILY #5 vial Home Medications: Atorvastatin [Lipitor] 10 mg PO HS 03/01/17 [History] Baclofen [Lioresal] 10 mg PO BID PRN 03/01/17 [History] Cholecalciferol (Vitamin D3) [Vitamin D3] 2,000 unit PO DAILY 03/01/17 [History] Clopidogrel [Plavix] 75 mg PO DAILY 03/01/17 [History] Cyanocobalamin (Vitamin B-12) [Vitamin B-12] 500 mcg PO DAILY 03/01/17 [History] Gabapentin [Neurontin] 200 mg PO TID 03/01/17 [History] Ibuprofen [Motrin] 400 mg PO Q6H PRN 03/01/17 [History] Ertapenem [INVanz] 1,000 mg IVPB DAILY #7 vial 03/09/17 [Rx] Vancomycin [Vancocin (wt based)] 1,000 mg IV DAILY #5 vial 03/09/17 [Rx] Allergies/Adverse Reactions: 3 Allergy/AdvReac Type Severity Reaction Status Date / Time Penicillins Allergy Swelling Verified 03/01/17 13:51 of Lip/Tongue/Throat Date of admission: 03/02/17 12:25 Primary care physician: PCP NONE Consults: 03/02/17 12:37 Consult to Invasive Line Access Team [CONS] Routine Reason for Consult: limited vascular access Line Type: EPIV 03/03/17 21:34 Consult to Speech Therapy [CONS] Routine Comment: Evaluate, develop and implement POC Reason for Consult: Possible aspiration Call Completed: No 03/04/17 12:32 Consult to Infectious Diseases [CONS] Routine Consulting Provider: Infectious Disease Jacy Reason for Consult: multidrug resistant wound abx therapy Call Completed: Yes 03/08/17 10:08 Consult to Wound Care [CONS] Stat Reason for Consult: open area between toes and buttocks Time Notified: 10:08 Call Completed: No - Patient Status Condition: Fair - Discharge Instructions Follow Up With: WOUND, CLINIC [Other] - 03/12/17 10:45 am (THIS APPOINTMENT IS WITH DR. DENSIE IN WOUND CARE) Deniz Ramos MD [Non-Partnered Physician] - 03/18/17 2:30 pm Additional Instructions: wash buttock wound with soap and water daily and prn soilage, get 1 4x4 gauze moist with saline (not sloppy wet) and apply santyl and gentamicin ointment to gauze and mix/rub into gauze, pack into wound, cover with dry 4x4 gauze and secure with medipore tape, change daily and prn soilage Hospital course: Mr. Ac is a 86 year old male - Time Spent with Patient Total time spent providing and/or coordinating discharge services: - Constitutional Vitals: Temp Pulse Resp BP Pulse Ox 96.1 F L 87 20 115/65 94 03/09/17 12:02 03/09/17 12:02 03/09/17 12:02 03/09/17 12:02 03/09/17 12:02 General appearance: Present: cooperative, A&O X 1, pleasant, no acute distress, underweight
--- NOTE | 2017-03-09 14:16 | Infectious Disease Progress No ---
Date of Encounter: 03/09/17 Time of Encounter: 14:14 - Assessment and Plan (1) Sepsis Current Visit: Yes Status: Acute The patient developed sepsis-like picture after admission with fever, tachycardia, and leukocytosis. Likely secondary to aspiration PNA. Improved. WBC and tachycardia have improved. The patient has been afebrile >48 hours. Blood cultures drawn 03/03/17 are negative x 2 sets. Qualifiers: Sepsis type: sepsis due to unspecified organism Qualified Code(s): A41.9 - Sepsis, unspecified organism (2) Aspiration pneumonia Current Visit: Yes Status: Acute Patient was noted to have an aspiration event a couple of days ago. Speech therapy consulted and recommendations noted. Patient currently on mechanically altered diet and aspiration precautions. Recommend aggressive pulmonary toileting. Continue antibiotics as below. Qualifiers: Aspiration pneumonia type: unspecified Laterality: bilateral Lung location: lower lobe of lung Qualified Code(s): J69.0 - Pneumonitis due to inhalation of food and vomit (3) Infected wound Current Visit: Yes Status: Acute Location: Left buttock. Causative organism: E. coli ESBL, Proteus mirabilis, Enterococcus species. Secondary to decubitus ulcer. CT of the abdomen and pelvis showed a soft tissue defect without OM or abscess. Clinically, the wound looks okay. No foul odor, purulent drainage, or necrosis. Does not appear to probe to the bone. ESR elevated at 78. MRI negative for OM. General surgery team consulted and following. Recommend aggressive wound care and frequent turning. Continue Ertapenem 1 gram IV daily in preparation for discharge. (CrCl~ 53) Continue Vancomycin IV. Pharmacy to dose. Duration of treatment depends on the clinical picture, but wound recommend a total of 14 days of IV antibiotics. Continue Vancomycin through 03/15/17 and Ertapenem through 03/17/17. Monitor renal function and for drug toxicity and dose-adjust antibiotics. (4) Sacral decubitus ulcer Current Visit: Yes Status: Acute Qualifiers: Pressure ulcer stage: stage 3 Qualified Code(s): L89.153 - Pressure ulcer of sacral region, stage 3 (5) Paraplegia Current Visit: Yes Status: Chronic - Subjective Interval history: Patient seen and examined. No acute events noted overnight. Patient sitting up at the bedside in his wheelchair. Complains of chronic pain in his right foot that causes RLE jerking, but denies other complaints. Denies fevers or chills. Denies chest pain, shortness of breath. Reports a moist cough with scant yellow sputum. Denies nausea, vomiting, diarrhea or constipation. States he does not remember when his last BM was. Denies abdominal pain. Xie catheter has been removed. Denies oral thrush or new skin lesions. Infect Dis PN-Objective Data - Labs CBC & Chem 7: 03/09/17 03:50 03/09/17 03:50 Labs: Laboratory Results - last 24 hr 03/09/17 03/09/17 03:50 03:50 WBC 7.6 RBC 2.44 L Hgb 7.5 L Hct 23.2 L MCV 95.1 MCH 30.7 MCHC 32.3 RDW 14.6 H Plt Count 197 MPV 10.1 Immature Gran % 0.7 Seg Neutrophils % 54.7 Lymphocytes % 27.2 Monocytes % 10.7 Eosinophils % 6.6 Basophils % 0.1 Neutrophils # 4.2 Lymphocytes # 2.1 Monocytes # 0.8 Eosinophils # 0.5 Basophils # 0.0 Sodium 143 Potassium 4.4 Chloride 110 H Carbon Dioxide 29 BUN 22 Creatinine 0.87 Est GFR ( Amer) > 60 Est GFR (Non-Af Amer) > 60 BUN/Creatinine Ratio 25 Glucose 95 Calculated Osmolality 299 Calcium 8.3 L Phosphorus 2.3 Magnesium 1.4 L Cultures: Cultures 03/03/17 20:21 Blood Culture - Final Peripheral Venipuncture No growth. 03/03/17 20:21 Blood Culture - Final Peripheral Venipuncture No growth. 03/03/17 18:19 Urine Culture - Final Urine,Clean Catch No growth. Serology 03/06/17 03/03/17 Range/Units 11:10 18:19 Urine Color Yellow (Yellow) Urine Clarity Cloudy A (Clear) Urine pH 6.5 (5.0-8.0) pH Units Ur Specific [place] 1.021 (1.010-1.025) Urine Protein Negative (Neg-Trace) mg/dL Urine Glucose (UA) Normal (Normal) mg/dL Urine Ketones Negative (Negative) mg/dL Urine Blood Moderate H (Negative) Urine Nitrite Negative (Negative) Urine Bilirubin Negative (Negative) Urine Urobilinogen Normal (Normal) mg/dL Ur Leukocyte Esterase Large H (Negative) Urine Microscopic RBC 15-30 H (0-3) per hpf Urine Microscopic WBC 50-100 H (0-3) per hpf Ur Squamous Epith Cells Many H (None-Few) per lpf Urine Bacteria None Seen (None-Few) per hpf Hyaline Casts None Seen (None-Few) per lpf Stool Occult Blood Negative (Negative) Exam - Constitutional Vitals: Temp Pulse Resp BP Pulse Ox 96.1 F L 87 20 115/65 94 03/09/17 12:02 03/09/17 12:02 03/09/17 12:02 03/09/17 12:02 03/09/17 12:02 General appearance: average body habitus, cooperative, no acute distress - Head Head exam: Present: atraumatic, normal inspection, normocephalic - Eye Eye exam: Present: EOMI, normal appearance, PERRL Pupils: Present: normal accommodation - ENT ENT exam: Present: mucous membranes moist - Neck Neck exam: Present: normal inspection - Respiratory Respiratory exam: Present: CTAB. Absent: rales, respiratory distress, rhonchi, wheezes - Cardiovascular Cardiovascular exam: Present: RRR, +S1, +S2 - GI/Abdominal GI/Abdominal exam: Present: normal bowel sounds, soft. Absent: distended, tenderness - Extremities Exam Extremities exam: Absent: joint swelling, pedal edema, tenderness Additional comments: BLE muscle atrophy noted. - Back Exam Additional comments: Deferred per patient request. - Neurological Exam Neurological exam: Present: alert. Absent: oriented X3 (Oriented to person and place only.), facial droop, speech deficit - Psychiatric Psychiatric exam: Present: normal affect, normal mood - Skin Skin exam: Present: dry, intact, normal color, warm Consult Discharge Plan - Plan Additional Instructions: wash buttock wound with soap and water daily and prn soilage, get 1 4x4 gauze moist with saline (not sloppy wet) and apply santyl and gentamicin ointment to gauze and mix/rub into gauze, pack into wound, cover with dry 4x4 gauze and secure with medipore tape, change daily and prn soilage Referrals: WOUND, CLINIC [Other] - 03/12/17 10:45 am (THIS APPOINTMENT IS WITH DR. DENISE IN WOUND CARE) Deniz Ramos MD [Non-Partnered Physician] - 03/18/17 2:30 pm Prescriptions: Ertapenem [INVanz] 1,000 mg IVPB DAILY #7 vial Vancomycin [Vancocin (wt based)] 1,000 mg IV DAILY #5 vial
[2017-03-09] MEDS: Vancomycin 1,000 MG in D5% in Water 250 ML IVPB SCH (17:46)
[2017-03-10] MEDS: Ipratropium/Albuterol Neb 3 ML IH SCH ×3 (04:45→10:56)
[2017-03-10 04:56] LABS: ABG Base Excess 6.2 mEq/L (-2.0 to 3.0); ABG HCO3 31 mEq/L (21-27); ABG Oxygen Saturation 95 % (95-98); ABG PCO2 43 mmHg (35-45); ABG PH 7.46 pH Units (7.32-7.45); ABG PO2 70 mmHg (85-104); ABG TCO2 31.9 mEq/L (20-26)
[2017-03-10] MEDS: *HR* Heparin 5,000 UNIT/ML VIAL SQ SCH (06:14)
[2017-03-10 06:17] LABS: Blood Gas FiO2 21 %
[2017-03-10] MEDS: Gentamicin Oint 15 GM TUBE TP SCH (06:35)
[2017-03-10 06:38] LABS: BUN/Creatinine Ratio 22 (6-26); Blood Urea Nitrogen 20 mg/dL (8-26); Calcium 8.4 mg/dL (8.6-10.8); Carbon Dioxide 27 mEq/L (19-29); Chloride 109 mEq/L (98-109); Glucose 90 mg/dL (70-99); Magnesium 1.8 mg/dL (1.6-2.6); Osmolality,Calculated 292 (280-300); Potassium 4.6 mEq/L (3.5-4.5); Sodium 140 mEq/L (136-145); eGFR For African Americans > 60 (> 60); eGFR For Non-African Americans > 60 (> 60)
[2017-03-10 06:55] LABS: Basophils % 0.1 %; Eosinophils # 0.7 K/mcL (0.0-0.6); Eosinophils % 9.5 %; Immature Granulocytes % 0.8 % (0-4); Lymphocytes # 1.8 K/mcL (0.6-4.6); Lymphocytes % 23.3 %; Mean Corpuscular HGB Conc 32.5 g/dL (31.6-35.5); Mean Corpuscular Hemoglobin 30.2 pg (28.0-33.3); Mean Platelet Volume 10.5 fL (9.4-12.4); Monocytes # 0.7 K/mcL (0.0-1.3); Monocytes % 9.6 %; Neutrophils # 4.4 K/mcL (1.6-8.9); Platelet Count 212 K/mcL (140-400); Red Blood Count 3.01 M/mcL (4.19-5.50); Red Cell Distribution Width 15.1 % (11.5-14.5); Segmented Neutrophils % 56.7 %
[2017-03-10 07:09] LABS: Hemoglobin 9.1 g/dL (12.9-16.9)
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
--- NOTE | 2017-03-10 07:44 | Physician Discharge Referral ---
<Lawanda Rose - Last Filed: 03/10/17 07:41> ExtendedCare Referral Info Transfer To: [facility] Healthcare Provider in Charge after Transfer: PCP Institutional Level of Care: Skilled - Diagnosis (1) Sacral decubitus ulcer Priority: Primary Status: Acute (2) Paraplegia Priority: Primary Status: Chronic (3) Aspiration pneumonia Priority: Primary Status: Acute (4) Sepsis Priority: Primary Status: Acute (5) Anemia Priority: Primary Status: Acute (6) Hypomagnesemia Priority: Primary Status: Acute (7) CVA (cerebral vascular accident) Priority: Secondary Status: Chronic (8) DVT prophylaxis Priority: Secondary Status: Acute (9) Nocturnal hypoxemia Priority: Primary Status: Acute - Transfer Medications Prescriptions: Ascorbic Acid [Vitamin C] 500 mg PO BID #20 tablet Collagenase Oint [Santyl] 1 appl TP DAILY #1 tube Ertapenem [INVanz] 1,000 mg IVPB DAILY #7 vial Gentamicin Oint [Garamycin] 1 appl TP DAILY #1 tube Multivit/Ca/Min/Fe/FA [Thera M Plus] 1 tab PO DAILY #10 tablet Vancomycin [Vancocin (wt based)] 1,000 mg IV DAILY #5 vial Home Medications: Atorvastatin [Lipitor] 10 mg PO HS 03/01/17 [History] Baclofen [Lioresal] 10 mg PO BID PRN 03/01/17 [History] Cholecalciferol (Vitamin D3) [Vitamin D3] 2,000 unit PO DAILY 03/01/17 [History] Clopidogrel [Plavix] 75 mg PO DAILY 03/01/17 [History] Cyanocobalamin (Vitamin B-12) [Vitamin B-12] 500 mcg PO DAILY 03/01/17 [History] Gabapentin [Neurontin] 200 mg PO TID 03/01/17 [History] Ibuprofen [Motrin] 400 mg PO Q6H PRN 03/01/17 [History] Ertapenem [INVanz] 1,000 mg IVPB DAILY #7 vial 03/09/17 [Rx] Vancomycin [Vancocin (wt based)] 1,000 mg IV DAILY #5 vial 03/09/17 [Rx] Ascorbic Acid [Vitamin C] 500 mg PO BID #20 tablet 03/10/17 [Rx] Collagenase Oint [Santyl] 1 appl TP DAILY #1 tube 03/10/17 [Rx] Gentamicin Oint [Garamycin] 1 appl TP DAILY #1 tube 03/10/17 [Rx] Multivit/Ca/Min/Fe/FA [Thera M Plus] 1 tab PO DAILY #10 tablet 03/10/17 [Rx] Allergies/Adverse Reactions: 3 Allergy/AdvReac Type Severity Reaction Status Date / Time Penicillins Allergy Swelling Verified 03/01/17 13:51 of Lip/Tongue/Throat - Respiratory Orders Smoking Cessation: Smoking cessation has been advised. For more information, call the [email or web address] Quit Line at [phone]-AMHH-NOW. - Lab Orders Lab Orders: CBC (weekly), Other (include drug levels w/frequency) (BMP - weekly , Vancomycin trough - on Tuesday 03/13,) - Ancillary Orders May use pressure relief devices daily prn, May go on DEN w/family/respon constitution party w /meds at nurse discretion PRN - Advance Directives Code Status: Full Code - Rehabiliation Orders Rehab Potential: Fair Rehab Orders: Evaluation for Physical Therapy, Evaluation for Occupational Therapy - Treatments Skin tear care topically daily PRN per policy, May check for fecal impaction rectally daily PRN, Fleet enema rectally every other day PRN cleansing purposes - Diet Orders Regular ([place] Thickened) CERTIFICATION: I certify that the transfer of the above named patient to an Extended Care Facility is necessary for the continuing treatment of the diagnosis listed. The above information is true and accurate reflection of patient's current condition. Confidential - Redisclosure prohibited without a patient's written consent. <Nate Toledo - Last Filed: 03/10/17 10:05> - Respiratory Orders Oxygen / L per min (Oxygen at 2 L/m by nasal cannula at nighttime as needed for low oxygen saturation) Smoking Cessation: Smoking cessation has been advised. For more information, call the [email or web address] Quit Line at [phone]. CERTIFICATION: I certify that the transfer of the above named patient to an Extended Care Facility is necessary for the continuing treatment of the diagnosis listed. The above information is true and accurate reflection of patient's current condition. Confidential - Redisclosure prohibited without a patient's written consent.
[2017-03-10 07:59] VITALS: BP 136/68
[2017-03-10] MEDS: Ertapenem 1,000 MG in 0.9 % Sodium Chloride Mini Bag 100 ML IVPB SCH (08:27)
[2017-03-10] MEDS: Multivit/Ca/Min/Fe/FA 1 TAB TABLET PO SCH (08:28)
[2017-03-10] MEDS: Cholecalciferol (D-3) 1,000 UNIT TABLET PO SCH (08:28)
[2017-03-10] MEDS: Gabapentin 100 MG CAPSULE PO SCH (08:28)
[2017-03-10] MEDS: Cyanocobalamin (B-12) 1,000 MCG TABLET PO SCH (08:28)
[2017-03-10] MEDS: Ascorbic Acid 500 MG TABLET PO SCH (08:29)
--- NOTE | 2017-03-10 10:01 | Event Note ---
Date of Encounter: 03/10/17 Time of Encounter: 09:56 I examined this patient and my medical decision-making was reviewed with the Resident Physician. I agree with the documented findings, disposition and treatment plan as described except to the extent set forth below. Patient reports no shortness of breath. His cough has improved. Lung sounds diminished at the bases, otherwise clear Laboratory data reviewed. Hemoglobin has improved since yesterday after transfusion. Plan: The patient is medically [facility] He will continue with a 5 day course of IV antibiotics including vancomycin and ertapenem.
== END 2017-03-10 11:44 | DRG 592 ==
LOC: EMEROO 12:42 → 3ANU 12:42 → SUATTDRO 18:48 → 3ANU 20:11 → SUATTDRO 03-02 12:25 → 2NNU 03-03 20:57
PROVIDERS: ADMIT Nurse Practitioner Family; ATTEND Internal Medicine